=== PATIENT | male | born 1995 | race Caucasian/White ===

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

== ENCOUNTER 2017-09-28 20:06 | Emergency (ER) | payer OTHER ==
[~2017-09-28] VITALS: Ht 188 cm; Wt 127.0 kg
[~2017-09-28 20:06] MED LIST changes: +ONDA8TAB9 PO
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
--- OUTSIDE RECORDS SUMMARY | 2017-09-28 20:12 | XMS REPORT | Continuity of Care Document ---
Author Author [employer] Organization [facility] Address Unknown Phone Unavailable Care Team Providers Care Upholsterer Inside Name Role Phone [employer] Unavailable Unavailable Problems Medications Allergies, Adverse Reactions, Alerts Immunizations Results Vital Signs Encounters Location Location Details Encounter Type Encounter Number Reason For Visit Attending Provider ADM Date DC Date Status Source [facility] CLI [id number] Eval R knee pain xmths, neg films Nabila Pacicca Active [facility] Procedures Plan of Care Social History Assessment and Plan Family History Advance Directives Functional Status
--- OUTSIDE RECORDS SUMMARY | 2017-09-28 20:12 | XMS REPORT | Clinical Summary ---
Author Author [facility] Organization [facility] Address Unknown Phone Unavailable Care Team Providers Care Woodworking Machine Operator Name Role Phone PCP Unavailable Source Comments Some departments are not documenting in the electronic medical record. If you do not see the information that you expected, contact Release of Information in the Health Information Management department at [phone] for further assistance in locating additional records.[facility] Allergies Not on File Current Medications Not on file Active Problems Not on file Social History Tobacco Use Types Packs/Day Years Used Date Never Assessed Sex Assigned at Date Recorded Not on file Last Filed Vital Signs Not on file Plan of Treatment Health Maintenance Due Date Last Done Comments PHYSICAL (COMPREHENSIVE) 2004 EXAM HPV VACCINES (1 of 3 - 2008 Male 3 Dose Series) PERTUSSIS VACCINE 2008 HIV SCREENING 2012 TETANUS VACCINE 2014 INFLUENZA VACCINE 04/14/2018 Results Not on filefrom Last 3 Months
--- OUTSIDE RECORDS SUMMARY | 2017-09-28 20:12 | XMS REPORT ---
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 027626859 Problem Morbid obesity E66.01 Active 192771861 Problem GERD without esophagitis K21.9 Active 305500605 ALLERGIES No Known Allergies SOCIAL HISTORY Never Assessed PLAN OF CARE Activity Details Follow Up prn Reason: VITAL SIGNS Height 70 in 2016-07-11 Weight 305.6 lbs 2016-07-11 Temperature 97.8 degrees Fahrenheit 2016-07-11 Heart Rate 88 bpm 2016-07-11 Respiratory Rate 18 2016-07-11 BMI 43.84 kg/m2 2016-07-11 Blood pressure systolic 128 mmHg 2016-07-11 Blood pressure diastolic 82 mmHg 2016-07-11 MEDICATIONS Medication Instructions Dosage Frequency Start Date End Date Duration Status Amoxicillin 500 MG Orally every 12 hrs 1 tablet 12h Jun, Jul, 10 day(s) Active PredniSONE 20 MG Orally Once a day 1 tablet 24h Jun, Jul, 5 days Active RESULTS No Results PROCEDURES No Known procedures IMMUNIZATIONS No Known Immunizations MEDICAL (GENERAL) HISTORY Type Description Date Medical History RA- has never been treated for this Medical History asthma Medical History MRSA right knee Surgical History orthopedic surgery- right knee at age 8 2003 Hospitalization History Surgery(s) only 2003 Hospitalization History pneumonia as an infant
[2017-09-28] MEDS ORDERED: HYDROcodone/APAP 5 MG/325 MG (LORTAB) TAB PO ONE (20:15)
--- NOTE | 2017-09-28 20:22 | ED Lower Extremity ---
General Stated Complaint: FELL,KNEE SWOLLEN Source: patient Exam Limitations: no limitations History of Present Illness Date Seen by Provider: Sep 28, 2017 Time Seen by Provider: 20:19 Initial Comments Ambulatory to room 6 without use of assistive device with reports of right knee pain. Patient was at [employer] for his sister's pancake feed when he slipped on a wet spot on the floor and his right lower leg went out laterally buckling of the knee. He has been able to walk since the injury including immediately after the injury but has pain to the medial aspect and some swelling now. Onset: just prior to arrival Severity: moderate Pain/Injury Location: right knee Method of Injury: twisted Modifying Factors: Worse With Movement Allergies and Home Medications Allergies Coded Allergies: No Known Drug Allergies (Unverified , 02/09/09) Home Medications Ondansetron 8 Mg Tab.rapdis, 8 MG PO Q6H PRN for NAUSEA-1ST LINE Prescribed by: CALIN LAFLEUR on 10/16/16 1839 Tramadol HCl 50 Mg Tablet, 1-2 TAB PO Q4H PRN for PAIN Prescribed by: MAYA REYNOSO on 12/18/15 0324 Patient Home Medication List Home Medication List Reviewed: Yes Constitutional: see HPI EENTM: see HPI Respiratory: no symptoms reported Cardiovascular: no symptoms reported Genitourinary: no symptoms reported Musculoskeletal: see HPI Skin: no symptoms reported Psychiatric/Neurological: No Symptoms Reported Past Ksftxhz-Zwgiyo-Asbyro Hx Patient Social History Recent Hopitalizations: No Immunizations Up To Date Tetanus Booster (TDap): Less than 5yrs Date of Influenza Vaccine: Apr 14, 2012 Seasonal Allergies Seasonal Allergies: No Surgeries Surgeries: Orthopedic Respiratory Respiratory Disorders: Asthma Reproductive System Hx Reproductive Disorders: No Sexually Transmitted Disease: No Psychosocial Behavioral Health Disorders: ADD/ADHD Physical Exam Vital Signs Vital Signs - First Documented 09/28/17 20:13 Temp 99.1 Pulse 103 Resp 18 B/P (MAP) 161/89 (113) Pulse Ox 96 O2 Delivery Room Air Capillary Refill : General Appearance: WD/WN, no apparent distress HEENT: PERRL/EOMI, normal ENT inspection Neck: non-tender, full range of motion Respiratory: no respiratory distress, no accessory muscle use Gastrointestinal: normal bowel sounds, non tender Hips: bilateral hip non-tender, bilateral hip normal inspection, bilateral hip normal range of motion Legs: bilateral leg non-tender, bilateral leg normal inspection, bilateral leg normal range of motion Knees: left knee non-tender, left knee normal inspection, left knee normal range of motion, right knee pain, right knee soft tissue tenderness, right knee swelling Ankles: bilateral ankle non-tender, bilateral ankle normal inspection, bilateral ankle normal range of motion Feet: bilateral foot non-tender, bilateral foot normal inspection, bilateral foot normal range of motion Neurologic/Psychiatric: alert, normal mood/affect, oriented x 3 Skin: normal color, warm/dry Progress/Results/Core Measures Results/Orders My Orders Orders - CALIN LAFLEUR APRN Knee, Right, 3 Views (09/28/17 20:15) Hydrocodone/Apap 5/325 Tablet (Lortab 5 (09/28/17 20:15) Rx-Hydrocodone/Apap 5-325 Mg (Rx-Vicodin (09/28/17 21:15) Medications Given in ED Current Medications Medications Dose Ordered Sig/Omar Route Start Time Stop Time Status Last Admin Dose Admin Acetaminophen/ Hydrocodone Bitart 1 ea Q4H PRN PO 09/28/17 21:15 09/28/17 22:54 DC 09/28/17 21:15 1 EA Acetaminophen/ Hydrocodone Bitart 1 tab ONCE ONCE PO 09/28/17 20:15 09/28/17 20:16 DC 09/28/17 20:20 1 TAB Vital Signs/I&O Vital Sign - Last 12Hours 09/28/17 09/28/17 20:13 21:15 Temp 99.1 Pulse 103 0 Resp 18 0 B/P (MAP) 161/89 (113) 0/0 Pulse Ox 96 0 O2 Delivery Room Air Departure Communication (Admissions) Progress Notes Due to the patient's large body habitus, a knee immobilizer will not fit. We will give him an Truong bandage and crutches. Impression Impression: Primary Impression: Internal derangement of right knee Disposition: HOME, SELF-CARE Condition: Stable Departure-Patient Inst. Decision time for Depature: 20:21 Referrals: NO,LOCAL PHYSICIAN (PCP/Family) Primary Care Physician Patient Instructions: Knee Pain Add. Discharge Instructions: 1. Return to the emergency room for any worsening pain 2. Tylenol and Motrin for pain control. Ice pack to the knee as much as possible for the rest of tonight. Follow-up with your doctor next week if the pain persists to discuss further imaging such as MRI of the knee. CALIN LAFLEUR APRN Sep 28, 2017 20:22
--- NOTE | 2017-09-28 21:08 | Diagnostic Imaging Report ---
PATIENT HISTORY: Pain in the right knee after fall. TECHNIQUE: 3 views of the right knee COMPARISON: 03/10/2014 FINDINGS: No acute fracture or dislocation is seen in the right knee. Alignment appears normal. There is a slightly irregular appearance of the patella, thought to be due to a large bipartite component. No significant joint effusion is seen. There is mild anterior soft tissue edema. IMPRESSION: No acute osseous abnormality is seen in the right knee. Dictated by: Dictated on workstation # [id number]
[2017-09-28 21:15] VITALS: BP 0/0
[2017-09-28] MEDS ORDERED: RX-HYDROCODONE/APAP 5/325 MG #4 TAB PK PO PRN (21:15)
== END 2017-09-28 21:15 | disposition home or self-care (01) ==
LOC: EDUNIT# 20:06 → ER 20:09
DX: M23.91 Unspecified internal derangement of right knee (principal); F90.9 Attention-deficit hyperactivity disorder, unspecified type; W01.0XXA Fall on same level from slipping, tripping and stumbling without subsequent striking against object, initial encounter
CPT/HCPCS: 73562

== ENCOUNTER 2017-09-30 19:28 | Emergency (ER) | payer OTHER ==
[~2017-09-30] VITALS: Ht 188 cm; Wt 127.0 kg
--- OUTSIDE RECORDS SUMMARY | 2017-09-30 19:33 | XMS REPORT | Continuity of Care Document ---
Author Author [facility] Organization [facility] Address Unknown Phone Unavailable Allergies Active Description Code Type Severity Reaction Onset Reported/Identified Relationship to Patient Clinical Status Yes No Known Drug Allergies [id number] Drug Allergy Mild N/A 02/09/2009 Medications There [...] MD Ot E016.1 ACTIVITIES INVOLVING GARDENING AND [employer] 10/26/2013 MAYA REYNOSO MD Ot E927.0 OVEREXERTION [...] culture - 10/16/16 18:33 Bacterial throat culture [id number] NRG FREE TEXT EXTERNAL PLUS ABUNDANT NORMAL KRISS NRG QUANTITY OF GROWTH Scant Growth NRG Encounters ACCT No. Visit Date/Time Discharge Status Pt. Type Provider Facility Loc./Unit Complaint [id number] 10/16/2016 18:16:00 10/16/2016 19:02:00 DIS Emergency CALIN LAFLEUR APRN [facility] ER VOMITING,SORE THROAT [id number] 12/23/2015 21:38:00 12/23/2015 23:27:00 DIS Emergency CALIN LAFLEUR APRN [facility] ER SEVERE PAIN IN HEAD AND NECK/DIZZINESS [id number] 12/18/2015 02:53:00 12/18/2015 03:43:00 DIS Emergency MAYA REYNOSO MD [facility] ER FALL [id number] 11/07/2014 23:27:00 11/08/2014 00:23:00 DIS Emergency ANA FATIMA DO [facility] ER RT EAR HEARING LOSS/ POSSIBLE FOREIGN BODY [id number] 03/10/2014 08:16:00 03/10/2014 09:27:00 DIS Emergency ANA FATIMA DO [facility] ER RIGHT KNEE INJURY [id number] 10/26/2013 18:35:00 10/26/2013 19:00:00 DIS Emergency MAYA REYNOSO MD [facility] ER BACK PAIN [id number] 04/27/2013 20:03:00 04/27/2013 22:07:00 DIS Emergency LESLYE ARRIAZA [facility] ER MULTIPLE COMPLAINTS [id number] 11/26/2012 21:54:00 11/26/2012 22:45:00 DIS Emergency ANA FATIMA DO [facility] ER MOUTH ABCESS [id number] 08/09/2012 22:17:00 Document Registration [id number] 12/14/2010 21:17:00 Document Registration
--- OUTSIDE RECORDS SUMMARY | 2017-09-30 19:33 | XMS REPORT | Continuity of Care Document ---
Author Author [employer] Organization [facility] Address Unknown Phone Unavailable Care Team Providers Care Staffing Operations Manager Name Role Phone [employer] Unavailable Unavailable Problems Medications Allergies, Adverse Reactions, Alerts Immunizations Results Vital Signs Encounters Location Location Details Encounter Type Encounter Number Reason For Visit Attending Provider ADM Date DC Date Status Source [facility] CLI [id number] Eval R knee pain xmths, neg films Nabila Pacicca Active [facility] Procedures Plan of Care Social History Assessment and Plan Family History Advance Directives Functional Status
--- OUTSIDE RECORDS SUMMARY | 2017-09-30 19:33 | XMS REPORT | Clinical Summary ---
Author Author [facility] Organization [facility] Address Unknown Phone Unavailable Care Team Providers Care Electrical Fitter Name Role Phone PCP Unavailable Source Comments Some departments are not documenting in the electronic medical record. If you do not see the information that you expected, contact Release of Information in the Health Information Management department at [phone] for further assistance in locating additional records.[facility] Allergies Not on File Current Medications [...]
[2017-09-30] MEDS ORDERED: METH4TAB PO (19:43)
--- NOTE | 2017-09-30 19:43 | ED Lower Extremity ---
General Chief Complaint: Lower Extremity Stated Complaint: PREV FALL/PAIN Source: patient History of Present Illness Date Seen by Provider: Sep 30, 2017 Time Seen by Provider: 19:34 Initial Comments PT ARRIVES VIA POV FROM HOME--AMBULATES IN ON HIS OWN WITHOUT DIFFICULTY PT WAS SEEN HERE ON Saturday09/28/17 AFTER TWISTING HIS RIGHT KNEE PT WAS SENT HOME WITH TAKE HOME PACK OF HYDROCODONE 5/325, AND NO RX. PT STATES "THE HYDRO'S AREN'T TOUCHING IT AND I ONLY HAVE 2 LEFT" STATES HE TOOK 1 PILL 30 MINUTES AGO. HAS NOT TAKEN ANYTHING ELSE FOR PAIN PT STATED AT THAT VISIT, THAT HE HAD ACCESS TO CRUTCHES, AND HAS THEM BUT HAS NOT BEEN USING THEM C/O CONTINUED PAIN, BUT HAS CONTINUED TO WALK ON IT NO NEW INJURY SINCE SATURDAY [facility] PCP: JOSH, RAJAN CEJA Allergies and Home Medications Allergies Coded Allergies: No Known Drug Allergies (Unverified , 02/09/09) Home Medications Methylprednisolone 4 Mg Tab.ds.pk, 4 MG PO UD Prescribed by: ANA FATIMA on 09/30/171942 Ondansetron 8 Mg Tab.rapdis, 8 MG PO Q6H PRN for NAUSEA-1ST LINE Prescribed by: CALIN LALFEUR on 10/16/16 1839 Tramadol HCl 50 Mg Tablet, 1-2 TAB PO Q4H PRN for PAIN Prescribed by: MAYA REYNOSO on 12/18/15 0324 Patient Home Medication List Home Medication List Reviewed: Yes Constitutional: no symptoms reported Musculoskeletal: see HPI Skin: no symptoms reported Psychiatric/Neurological: No Symptoms Reported Past Dcxumdi-Qxooxu-Yvedsg Hx Patient Social History Alcohol Use: Denies Use Recreational Drug Use: No Smoking Status: Never a Smoker Recent Foreign Travel: No Contact w/Someone Who Travel: No Recent Hopitalizations: No Immunizations Up To Date Tetanus Booster (TDap): Less than 5yrs Date of Influenza Vaccine: Apr 14, 2012 Seasonal Allergies Seasonal Allergies: No Surgeries History of Surgeries: Yes (RIGHT KNEE ABSCESS I&D AGE 8) Surgeries: Orthopedic Respiratory History of Respiratory Disorde: Yes Respiratory Disorders: Asthma Cardiovascular History of Cardiac Disorders: No Neurological History of Neurological Disord: No Reproductive System Hx Reproductive Disorders: No Sexually Transmitted Disease: No Gastrointestinal History of Gastrointestinal Di: No Musculoskeletal History of Musculoskeletal Dis: No Endocrine History of Endocrine Disorders: No HEENT History of HEENT Disorders: No Cancer History of Cancer: No Psychosocial History of Psychiatric Problem: Yes Behavioral Health Disorders: ADD/ADHD Integumentary History of Skin or Integumenta: Yes (?MRSA?) Blood Transfusions History of Blood Disorders: No Physical Exam Vital Signs Capillary Refill : General Appearance: WD/WN, no apparent distress, obese Knees: right knee normal range of motion, right knee no evidence of injury, right knee soft tissue tenderness, right knee other (NO SWELLING OR EFFUSION, NO LIGAMENT LAXITY. 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 Referrals: ROLAND MEADOWS DO [facility] Patient Instructions: Going Up and Down Curbs or Stairs With a Walker or Crutches, How to Use Crutches, How to Use an Elastic Bandage, Knee Immobilizer ( DC), Knee Sprain (DC) Add. Discharge Instructions: WEAR TRUONG WRAP AND KNEE IMMOBILIZER AND USE CRUTCHES AT ALL TIMES ALTERNATE ICE AND HEAT TO AREA AT 20 MINUTE INTERVALS FOLLOW UP WITH DR. MEADOWS AT [facility] 4 STATES NEXT WEEK FOR FURTHER CARE All discharge instructions reviewed with patient and/or family. Voiced understanding. Scripts Methylprednisolone (Medrol) 4 Mg Tab.ds.pk 4 MG PO UD, #1 PKG Prov: ANA FATIMA DO 09/30/17 ANA FATIMA DO Sep 30, 2017 19:43
[2017-09-30 19:51] VITALS: BP 154/115
[2017-09-30] MEDS ORDERED: METF500T8 (20:03)
== END 2017-09-30 19:51 | disposition home or self-care (01) ==
LOC: EDUNIT# 19:28 → ER 19:29
DX: M25.561 Pain in right knee (principal); J45.909 Unspecified asthma, uncomplicated; F90.9 Attention-deficit hyperactivity disorder, unspecified type; Z79.52 Long term (current) use of systemic steroids; X50.0XXA Overexertion from strenuous movement or load, initial encounter
CPT/HCPCS: 99283

== ENCOUNTER 2018-01-05 21:22 | Emergency (ER) | payer SELFPAY ==
[~2018-01-05] VITALS: Ht 188 cm; Wt 127.0 kg
[~2018-01-05 21:22] MED LIST changes: +METF500T8; +METH4TAB PO
--- OUTSIDE RECORDS SUMMARY | 2018-01-05 21:28 | XMS REPORT | Clinical Summary ---
Author Author [facility] Organization [facility] Address Unknown Phone Unavailable Care Team Providers Care Helpdesk Administrator Name Role Phone PCP Unavailable Source Comments Some departments are not documenting in the electronic medical record. If you do not see the information that you expected, contact Release of Information in the Health Information Management department at [phone] for further assistance in locating additional records.[facility] Allergies Not on File Current Medications [...]
--- OUTSIDE RECORDS SUMMARY | 2018-01-05 21:29 | XMS REPORT ---
Author Author LEEANN CEJA Organization [facility] Address [address] [place] [address] Care Team Providers Care Oil Well Services Field Supervisor Name Role Phone LEEANN CEJA Unavailable PROBLEMS Type Condition ICD9-CM Code TZP14-ND Code Onset Dates Condition Status SNOMED Code Problem Morbid obesity E66.01 Active 683273546 Problem GERD without esophagitis K21.9 Active 307899112 Problem Migraine with aura and without status migrainosus, not intractable G43.109 Active 3896646 Problem Moderate persistent asthma without complication J45.40 Active 272396465 Problem Tobacco abuse counseling Z71.6 Active 459734853 Problem Tobacco abuse Z72.0 Active 091070556 Problem Type 2 diabetes mellitus without complication, without long-term current use of insulin E11.9 Active 583795991 Problem History of juvenile rheumatoid arthritis Z87.39 Active 771443465 ALLERGIES No Information ENCOUNTERS Encounter Location Date Diagnosis [place] [address] [address]- [address]3 Dec, [place] [address] 85869- 7107 Aug, [place] [address] [place] [id number] [place] [address] 37082- 4842 Aug, Type 2 diabetes mellitus without complication, without long- term current use of insulin E11.9 [place] [address] 72371- 6470 14 Aug, 2017 [place] [address] 63080- 7297 08 Aug, 2017 Type 2 diabetes mellitus without complication, without long- term current use of insulin E11.9 [place] [address] 76911- 1533 Aug, [place] [address] [place] [address] 94437- 1603 Aug, Type 2 diabetes mellitus without complication, without long- term current use of insulin E11.9 [place] [address] [place] [address] 44979- 5305 Jul, [place] [address] [place] [id number] [place] [address] 95648- 0640 Jul, [place] [address] [place] [address] 91618- 3061 Jul, Type 2 diabetes mellitus without complication, without long- term current use of insulin E11.9 ; Migraine with aura and without status migrainosus, not intractable G43.109 and BMI 40.0-44.9, adult Z68.41 [place] [address] [place] [id number] [place] [address] 98022- 9551 Jul, [place] [address] [place] [address] 76353- 7775 Jun, [place] [address] [place] [id number] [place] [address] 67361- 5267 Jun, [place] [address] [place] [address] 82200- 3761 Jun, [place] [address] [place] [address] 40581- 5468 Jun, Type 2 diabetes mellitus without complication, without long- term current use of insulin E11.9 ; Moderate persistent asthma without complication J45.40 ; BMI 40.0-44.9, adult Z68.41 and Encounter for screening for diabetes mellitus Z13.1 [place] [address] [place] [address] 75146- 3010 May, [place] [address] [address] 08 Mar, 2017 Encounter to establish care with new doctor Z76.89 ; History of juvenile rheumatoid arthritis Z87.39 ; Tobacco abuse Z72.0 ; Tobacco abuse counseling Z71.6 ; GERD without esophagitis K21.9 ; Morbid obesity E66.01 and Acute serous otitis media of left ear, recurrence not specified H65.02 [facility] [address] [place] [address] 06 Mar, 2017 [facility] [address] [place] [id number] [place] [address] 68534 -0805 Jun, Acute non-recurrent pansinusitis J01.40 [facility] [address] [place] [id number] [place] [address] [id number] Sep, Stye H00.019 and Left eye pain H57.12 [facility] [address] [place] [id number] [place] [address] 58971- 3076 Oct, [facility] [address] [place] [id number] [place] [address] 60447- 1228 Oct, [facility] [address] [place] [id number] [place] [address] 53100- 1979 Jul, [facility] [address] [place] [id number] [place] [address] 70731- 4577 Jul, [facility] [address] [place] [address] 85956- 2267 May, [facility] [address] [place] [id number] [place] [address] 57303- 2684 May, [facility] [address] [place] [id number] [place] [address] 84786- 6306 May, [facility] [address] [place] [id number] [place] [address] 67351- 5431 May, [facility] [address] [place] [id number] [place] [address] 01374- 0945 Feb, [facility] [address] [place] [id number] [place] [address] 57942- 6333 Feb, [facility] [address] [facility] [id number] [place] [address]- 2478 Sep, [facility] [address] [facility] [id number] [place] [address] Sep, IMMUNIZATIONS No Known Immunizations SOCIAL HISTORY Never Assessed REASON FOR VISIT BS f/u attempt PLAN OF CARE VITAL SIGNS MEDICATIONS Unknown Medications RESULTS No Results PROCEDURES No Known procedures INSTRUCTIONS MEDICATIONS ADMINISTERED No Known Medications MEDICAL (GENERAL) HISTORY Type Description Date Medical History RA- has never been treated for this Medical History asthma Medical History MRSA right knee Surgical History orthopedic surgery- right knee at age 8 2003 Hospitalization History Surgery(s) only 2003 Hospitalization History pneumonia as an infant
--- OUTSIDE RECORDS SUMMARY | 2018-01-05 21:29 | XMS REPORT ---
Author Author LEEANN CEJA Organization [facility] Address [address] [place] [address] Care Team Providers Care Customer Support Engineer Name Role Phone LEEANN CEJA Unavailable PROBLEMS Type Condition ICD9-CM Code VDB20-IY Code Onset Dates Condition Status SNOMED Code Problem Morbid obesity E66.01 Active 286320874 Problem GERD without esophagitis K21.9 Active 776499411 Problem Migraine with aura and without status migrainosus, not intractable G43.109 Active 3584603 Problem Moderate persistent asthma without complication J45.40 Active 585496089 Problem Tobacco abuse counseling Z71.6 Active 844837459 Problem Tobacco abuse Z72.0 Active 138965471 Problem Type 2 diabetes mellitus without complication, without long-term current use of insulin E11.9 Active 703656866 Problem History of juvenile rheumatoid arthritis Z87.39 Active 717095243 ALLERGIES No Known Allergies ENCOUNTERS Encounter Location Date Diagnosis [place] [address] [place] [id number] [place] [address] 13947- 6115 20 Aug, 2017 [place] [address] [place] [id number] [place] [address] 18600- 9399 Aug, Type 2 diabetes mellitus without complication, without long- term current use of insulin E11.9 [facility] [address] [place] [address] 22292- 4927 Aug, [facility] [address] [place] [id number] [place] [address] 28993- 2810 08 Aug, 2017 Type 2 diabetes mellitus without complication, without long- term current use of insulin E11.9 [facility] [address] [place] [id number] [place] [address] 69263- 3104 Aug, [facility] [address] [place] [id number] [place] [address] 77104- 4175 Aug, Type 2 diabetes mellitus without complication, without long- term current use of insulin E11.9 [place] [address] [place] [id number] [place] [address] 83209- 2503 Jul, [place] [address] [place] [id number] [place] [address] 05536- 8471 Jul, [place] [address] [place] [id number] [place] [address] 83530- 9607 Jul, Type 2 diabetes mellitus without complication, without long- term current use of insulin E11.9 ; Migraine with aura and without status migrainosus, not intractable G43.109 and BMI 40.0-44.9, adult Z68.41 [place] [address] [place] [id number] [place] [address] 09365- 0211 Jul, [place] [address] [place] [id number] [place] [address] 82985- 3935 Jun, [place] [address] [place] [id number] [place] [address] 98446- 9627 Jun, [place] [address] [place] [id number] [place] [address] 35344- 0101 Jun, [place] [address] [place] [address] 36456- 7537 Jun, Type 2 diabetes mellitus without complication, without long- term current use of insulin E11.9 ; Moderate persistent asthma without complication J45.40 ; BMI 40.0-44.9, adult Z68.41 and Encounter for screening for diabetes mellitus Z13.1 [place] [address] [place] [id number] [place] [address] 95602- 6632 May, [place] [address] [place] [id number] [place] [address] 89224- 5674 Mar, Encounter to establish care with new doctor Z76.89 ; History of juvenile rheumatoid arthritis Z87.39 ; Tobacco abuse Z72.0 ; Tobacco abuse counseling Z71.6 ; GERD without esophagitis K21.9 ; Morbid obesity E66.01 and Acute serous otitis media of left ear, recurrence not specified H65.02 [facility] [address] [place] [id number] [place] [address] 30072- 6555 06 Mar, 2017 [facility] [address] [place] [id number] [place] [address] 62478 -8977 Jun, Acute non-recurrent pansinusitis J01.40 [facility] [address] [place] [id number] [place] [address] [id number] [phone] Sep, 2015 Stye H00.019 and Left eye pain H57.12 [facility] [address] [place] [id number] [place] [address] 64397- 8946 Oct, [facility] [address] [place] [id number] [place] [address] 87621- 0737 Oct, [facility] [address] [place] [id number] [place] [address] 38291- 5807 Jul, [facility] [address] [place] [id number] [place] [address] 24666- 7098 Jul, [facility] [address] [place] [id number] [place] [address] 38817- 1830 May, [facility] [address] [place] [id number] [place] [address] 87433- 8037 May, [facility] [address] [place] [id number] [place] [address] 56505- 8449 May, [facility] [address] [place] [id number] [place] [address] 76262- 2286 May, [facility] [address] [place] [id number] [place] [address] [id number]- 6266 Feb, [facility] [address] [place] [id number] [place] [address] [phone]- 3437 Feb, [facility] [address] [place] [id number] [place] [address] 49492- 2709 Sep, [facility] [address] [facility] [id number] [place] [address]- 8179 Sep, IMMUNIZATIONS No Known Immunizations SOCIAL HISTORY Never Assessed REASON FOR VISIT Establish Care Presley, wants to see if he is diabetic. BS run around 200- 300. PLAN OF CARE Activity Details Follow Up 4 Weeks Reason:DM VITAL SIGNS Height 70 in 2017-06-17 Weight 298.6 lbs 2017-06-17 Temperature 98.7 degrees Fahrenheit 2017-06-17 Heart Rate 108 bpm 2017-06-17 Respiratory Rate 20 2017-06-17 BMI 42.84 kg/m2 2017-06-17 Blood pressure systolic 140 mmHg 2017-06-17 Blood pressure diastolic 90 mmHg 2017-06-17 MEDICATIONS Medication Instructions Dosage Frequency Start Date End Date Duration Status Glucocard Expression Test - In Vitro Test blood sugars fasting and 2 hours after biggest meal. test blood sugar May, Active Glucocard Expression Monitor w/Device as directed May, Active Ibuprofen 200 MG Orally every 6 hrs 1 tablet with food or milk as needed 6h Active Glucocard Expression Test - In Vitro Test fasting and 2 hours after biggest meal. test blood sugar May, Active MetFORMIN HCl ER 500 mg Orally Once a day and taper up by 1 pill every 4 days to a maximum of 2 pills twice a day 1 tablet Jun, 30 day(s) Active RESULTS Name Result Date Reference Range A1C (IN HOUSE) 2017-06-17 A1C IN HOUSE 10.3 4.3 - 5.6 % Previous A1c n/a Lot [id number] Exp date 02/2019 PROCEDURES Procedure Date Ordered Result Body Site GLYCATED HEMOGLOBIN TEST Jun 17, 2017 INSTRUCTIONS MEDICATIONS ADMINISTERED No Known Medications MEDICAL (GENERAL) HISTORY Type Description Date Medical History RA- has never been treated for this Medical History asthma Medical History MRSA right knee Surgical History orthopedic surgery- right knee at age 8 2003 Hospitalization History Surgery(s) only 2003 Hospitalization History pneumonia as an infant
--- OUTSIDE RECORDS SUMMARY | 2018-01-05 21:29 | XMS REPORT ---
Author Author LEEANN CEJA Organization [facility] Address [address] [place] [address] Care Team Providers Care Family Practice Nurse Practitioner Name Role Phone LEEANN CEJA Unavailable PROBLEMS Type Condition ICD9-CM Code SWW25-LW Code Onset Dates Condition Status SNOMED Code Problem Morbid obesity E66.01 Active 951652274 Problem GERD without esophagitis K21.9 Active 598087064 Problem Migraine with aura and without status migrainosus, not intractable G43.109 Active 3240935 Problem Moderate persistent asthma without complication J45.40 Active 180783909 Problem Tobacco abuse counseling Z71.6 Active 832814427 Problem Tobacco abuse Z72.0 Active 828084391 Problem Type 2 diabetes mellitus without complication, without long-term current use of insulin E11.9 Active 325335756 Problem History of juvenile rheumatoid arthritis Z87.39 Active 962375297 ALLERGIES No Information ENCOUNTERS Encounter Location Date Diagnosis [place] [address] [place] [id number] [place] [address] 53404- 9548 Aug, [facility] [address] [place] [id number] [place] [address] 20579- 3359 Aug, Type 2 diabetes mellitus without complication, without long- term current use of insulin E11.9 [facility] [address] [place] [id number] [place] [address] 20422- 4234 Aug, [place] [address] [place] [id number] [place] [address] 39084- 0936 08 Aug, 2017 Type 2 diabetes mellitus without complication, without long- term current use of insulin E11.9 [facility] [address] [place] [id number] [place] [address] 02936- 6363 Aug, [facility] [address] [place] [id number] [place] [address] 06661- 6284 Aug, Type 2 diabetes mellitus without complication, without long- term current use of insulin E11.9 [place] [address] [place] [address] 59869- 4266 Jul, [place] [address] [place] [address] 96640- 5283 Jul, [place] [address] [place] [id number] [place] [address] 65483- 2935 Jul, Type 2 diabetes mellitus without complication, without long- term current use of insulin E11.9 ; Migraine with aura and without status migrainosus, not intractable G43.109 and BMI 40.0-44.9, adult Z68.41 [place] [address] [place] [address] 52232- 2731 Jul, [place] [address] [place] [id number] [place] [address] 84300- 5984 Jun, [place] [address] [place] [address] 01226- 1490 Jun, [place] [address] [place] [id number] [place] [address] 07707- 1411 Jun, [place] [address] [place] [address] 68638- 2706 Jun, Type 2 diabetes mellitus without complication, without long- term current use of insulin E11.9 ; Moderate persistent asthma without complication J45.40 ; BMI 40.0-44.9, adult Z68.41 and Encounter for screening for diabetes mellitus Z13.1 [place] [address] [place] [address] 01786- 6688 May, [place] [address] [place] [id number] [place] [address] 62152- 3754 Mar, Encounter to establish care with new doctor Z76.89 ; History of juvenile rheumatoid arthritis Z87.39 ; Tobacco abuse Z72.0 ; Tobacco abuse counseling Z71.6 ; GERD without esophagitis K21.9 ; Morbid obesity E66.01 and Acute serous otitis media of left ear, recurrence not specified H65.02 [facility] [address] [place] [id number] [place] [address] 88471- 5596 06 Mar, 2017 [facility] [address] [place] [id number] [place] [address] 73896 -9252 Jun, Acute non-recurrent pansinusitis J01.40 [facility] [address] [place] [id number] [place] [address] [id number] 10 Sep, 2015 Stye H00.019 and Left eye pain H57.12 [facility] [address] [place] [id number] [place] [address] 65762- 0562 Oct, [facility] [address] [place] [address] [id number] [place] [address] 49826- 1869 Oct, [facility] [address] [place] [id number] [place] [address] 33130- 3471 Jul, [facility] [address] [place] [address] [id number] [place] [address] 59920- 7086 Jul, [facility] [address] [id number] [place] [address] 63258- 6952 May, [facility] [address] [place] [id number] [place] [address] 87616- 2985 May, [facility] [address] [id number] [place] [address] 31451- 5132 May, [facility] [address] [id number] [place] [address] 38907- 1645 May, [facility] [address] [id number] [place] [address] 06716- 3929 Feb, [facility] [address] [place] [id number] [place] [address] 88551- 0581 Feb, [facility] [address] [id number] [place] [address] 73441- 6261 Sep, [facility] [address] [facility] [id number] [place] [address]- 2234 Sep, IMMUNIZATIONS No Known Immunizations SOCIAL HISTORY Never Assessed REASON FOR VISIT Requests return call PLAN OF CARE VITAL SIGNS MEDICATIONS Unknown [...]
--- OUTSIDE RECORDS SUMMARY | 2018-01-05 21:29 | XMS REPORT ---
Author Author LEEANN CEJA Organization [facility] Address [address] [place] [address] Care Team Providers Care Citizenship Teacher Name Role Phone LEEANN CEJA Unavailable PROBLEMS Type Condition ICD9-CM Code EFO00-ZC Code Onset Dates Condition Status SNOMED Code Problem Morbid obesity E66.01 Active 345644496 Problem GERD without esophagitis K21.9 Active 173350138 Problem Migraine with aura and without status migrainosus, not intractable G43.109 Active 6305673 Problem Moderate persistent asthma without complication J45.40 Active 264429689 Problem Tobacco abuse counseling Z71.6 Active 673750528 Problem Tobacco abuse Z72.0 Active 649726674 Problem Type 2 diabetes mellitus without complication, without long-term current use of insulin E11.9 Active 522879875 Problem History of juvenile rheumatoid arthritis Z87.39 Active 275479886 ALLERGIES No Information ENCOUNTERS Encounter Location Date Diagnosis [place] [id number] [place] [address] 73623- 3652 Aug, [facility] [id number] [place] [address] 61693- 6138 Aug, Type 2 diabetes mellitus without complication, without long- term current use of insulin E11.9 [facility] [id number] [place] [address] 80001- 6548 Aug, [place] [id number] [place] [address] 49895- 7243 08 Aug, 2017 Type 2 diabetes mellitus without complication, without long- term current use of insulin E11.9 [facility] [id number] [place] [address] 59702- 1609 Aug, [facility] [id number] [place] [address] 37499- 0008 Aug, Type 2 diabetes mellitus without complication, without long- term current use of insulin E11.9 [place] [address] [place] [address] 08320- 0906 Jul, [place] [address] [place] [address] 72486- 3645 Jul, [place] [id number] [place] [address] 72627- 3691 Jul, Type 2 diabetes mellitus without complication, without long- term current use of insulin E11.9 ; Migraine with aura and without status migrainosus, not intractable G43.109 and BMI 40.0-44.9, adult Z68.41 [place] [address] [place] [address] 39152- 6446 Jul, [place] [id number] [place] [address] 07993- 5302 Jun, [place] [id number] [place] [address] 01486- 2723 Jun, [place] [id number] [place] [address] 07390- 9243 Jun, [place] [address] [place] [address] 83024- 2794 Jun, Type 2 diabetes mellitus without complication, without long- term current use of insulin E11.9 ; Moderate persistent asthma without complication J45.40 ; BMI 40.0-44.9, adult Z68.41 and Encounter for screening for diabetes mellitus Z13.1 [place] [address] [place] [address] 64301- 5205 May, [place] [id number] [place] [address] 79614- 3222 Mar, Encounter to establish care with new doctor Z76.89 ; History of juvenile rheumatoid arthritis Z87.39 ; Tobacco abuse Z72.0 ; Tobacco abuse counseling Z71.6 ; GERD without esophagitis K21.9 ; Morbid obesity E66.01 and Acute serous otitis media of left ear, recurrence not specified H65.02 [facility] [id number] [place] [address] 54305- 3794 06 Mar, 2017 [facility] [id number] [place] [address] 79405 -2347 Jun, Acute non-recurrent pansinusitis J01.40 [facility] [id number] [place] [address] [id number] 10 Sep, 2015 Stye H00.019 and Left eye pain H57.12 [facility] [id number] [place] [address] 41754- 8511 Oct, [facility] [id number] [place] [address] 95750- 6623 Oct, [facility] [id number] [place] [address] 92966- 3931 Jul, [facility] [id number] [place] [address] 39745- 7536 Jul, [facility] [id number] [place] [address] 16876- 0340 May, [facility] [id number] [place] [address] 36557- 6046 May, [facility] [id number] [place] [address] 66350- 6813 May, [facility] [id number] [place] [address] 51073- 6883 May, [facility] [id number] [place] [address] 73877- 7639 Feb, [facility] [id number] [place] [address] 19921- 4277 Feb, [facility] [id number] [place] [address] 24963- 8969 Sep, [facility] [address] [facility] [id number] [place] [address] 7764 Sep, IMMUNIZATIONS No Known Immunizations SOCIAL HISTORY Never Assessed REASON FOR VISIT Refill request PLAN OF CARE VITAL SIGNS MEDICATIONS Unknown [...]
--- OUTSIDE RECORDS SUMMARY | 2018-01-05 21:29 | XMS REPORT ---
Author Author LEEANN CEJA Organization [facility] Address [address] [place] [address] Care Team Providers Care Board Design Engineer Name Role Phone LEEANN CEJA Unavailable PROBLEMS Type Condition ICD9-CM Code JEI08-SY Code Onset Dates Condition Status SNOMED Code Problem Morbid obesity E66.01 Active 617171907 Problem GERD without esophagitis K21.9 Active 563428076 Problem Migraine with aura and without status migrainosus, not intractable G43.109 Active 3845108 Problem Moderate persistent asthma without complication J45.40 Active 505320542 Problem Tobacco abuse counseling Z71.6 Active 119828487 Problem Tobacco abuse Z72.0 Active 078851256 Problem Type 2 diabetes mellitus without complication, without long-term current use of insulin E11.9 Active 174225580 Problem History of juvenile rheumatoid arthritis Z87.39 Active 765324264 ALLERGIES No Known Allergies ENCOUNTERS Encounter Location Date Diagnosis [place] [id number] [place] [address] 44798- 5902 Dec, [place] [id number] [place] [address] 44434- 5622 Aug, [place] [id number] [place] [address] 98694- 7186 Aug, Type 2 diabetes mellitus without complication, without long- term current use of insulin E11.9 [place] [id number] [place] [address] 91506- 0243 14 Aug, 2017 [place] [address] 25207- 7460 08 Aug, 2017 Type 2 diabetes mellitus without complication, without long- term current use of insulin E11.9 [place] [id number] [place] [address] 46309- 1257 Aug, [place] [address] [place] [address] 64909- 4056 Aug, Type 2 diabetes mellitus without complication, without long- term current use of insulin E11.9 [place] [address] [place] [address] 32159- 5278 Jul, [place] [id number] [place] [address] 64032- 4270 Jul, [place] [address] [place] [address] 02590- 0180 Jul, Type 2 diabetes mellitus without complication, without long- term current use of insulin E11.9 ; Migraine with aura and without status migrainosus, not intractable G43.109 and BMI 40.0-44.9, adult Z68.41 [place] [id number] [place] [address] 68593- 5111 Jul, [place] [id number] [place] [address] 33571- 2880 Jun, [place] [id number] [place] [address] 48715- 8878 Jun, [place] [address] [place] [address] 46855- 2651 Jun, [place] [address] [place] [address] 83396- 9362 Jun, Type 2 diabetes mellitus without complication, without long- term current use of insulin E11.9 ; Moderate persistent asthma without complication J45.40 ; BMI 40.0-44.9, adult Z68.41 and Encounter for screening for diabetes mellitus Z13.1 [place] [address] [place] [address] 24416- 4418 May, [place] [address] [place] [address] 05942- 5489 08 Mar, 2017 Encounter to establish care with new doctor Z76.89 ; History of juvenile rheumatoid arthritis Z87.39 ; Tobacco abuse Z72.0 ; Tobacco abuse counseling Z71.6 ; GERD without esophagitis K21.9 ; Morbid obesity E66.01 and Acute serous otitis media of left ear, recurrence not specified H65.02 [facility] [address] [address]- 3698 06 Mar, 2017 [facility] [id number] [place] [address] 98131 -0465 Jun, Acute non-recurrent pansinusitis J01.40 [facility] [id number] [place] [address] [id number] 10 Sep, 2015 Stye H00.019 and Left eye pain H57.12 [facility] [id number] [place] [address] 74844- 2175 14 Oct, 2014 [facility] [id number] [place] [address] 10610- 6823 Oct, [facility] [id number] [place] [address] 27010- 4199 Jul, [facility] [id number] [place] [address] 09421- 3797 Jul, [facility] [id number] [place] [address] 70559- 5629 May, [facility] [id number] [place] [address] 84169- 1862 May, [facility] [id number] [place] [address] 82816- 0876 May, [facility] [id number] [place] [address] 33749- 9440 May, [facility] [id number] [place] [address] 58517- 2142 Feb, [facility] [id number] [place] [address] 43626- 9338 Feb, [facility] [address] [facility] [id number] [address]- 6180 Sep, [facility] [address] [facility] [id number] [address]- 1000 Sep, IMMUNIZATIONS No Known Immunizations SOCIAL HISTORY Never Assessed REASON FOR VISIT Check up- F/u for diabetes. Blood sugars have been better 180-200. Keke PLAN OF CARE Activity Details Follow Up 3 Months Reason:DM VITAL SIGNS Height 70 in 2017-07-22 Weight 294.1 lbs 2017-07-22 Temperature 98.4 degrees Fahrenheit 2017-07-22 Heart Rate 88 bpm 2017-07-22 Respiratory Rate 22 2017-07-22 BMI 42.19 kg/m2 2017-07-22 Blood pressure systolic 144 mmHg 2017-07-22 Blood pressure diastolic 88 mmHg 2017-07-22 MEDICATIONS Medication Instructions Dosage Frequency Start Date End Date Duration Status Ibuprofen 200 MG Orally every 6 hrs 1 tablet with food or milk as needed 6h Not-Taking Trulicity 0.75 MG/0.5ML Subcutaneous once weekly as directed Jul, Active Glucocard Expression Test - In Vitro Test blood sugars fasting and 2 hours after biggest meal. test blood sugar May, Active MetFORMIN HCl ER 500 mg Orally Once a day and taper up by 1 pill every 4 days to a maximum of 2 pills twice a day 1 tablet Jun, 30 day(s) Active Glucocard Expression Monitor w/Device as directed May, Active Glucocard Expression Test - In Vitro Test fasting and 2 hours after biggest meal. test blood sugar May, Active Imitrex 50 mg Orally one time and may repeat in 2 hours if needed 1 tablet as needed Jul, Active RESULTS No Results PROCEDURES Procedure Date Ordered Result Body Site COMPREHEN METABOLIC PANEL Jul 22, 2017 LIPID PANEL Jul 22, 2017 VENIPUNCT, ROUTINE* Jul 22, 2017 COMPLETE CBC W/AUTO DIFF WBC Jul 22, 2017 INSTRUCTIONS MEDICATIONS ADMINISTERED No Known Medications MEDICAL (GENERAL) HISTORY Type Description Date Medical History RA- has never been treated for this Medical History asthma Medical History MRSA right knee Surgical History orthopedic surgery- right knee at age 8 2003 Hospitalization History Surgery(s) only 2003 Hospitalization History pneumonia as an
--- OUTSIDE RECORDS SUMMARY | 2018-01-05 21:29 | XMS REPORT ---
Author Author LEEANN CEJA Organization [facility] Address [address] [place] [address] Care Team Providers Care Radiology Receptionist Name Role Phone LEEANN CEJA Unavailable PROBLEMS Type Condition ICD9-CM Code TOW26-YN Code Onset Dates Condition Status SNOMED Code Problem Morbid obesity E66.01 Active 415814239 Problem GERD without esophagitis K21.9 Active 732555448 Problem Migraine with aura and without status migrainosus, not intractable G43.109 Active 6121082 Problem Moderate persistent asthma without complication J45.40 Active 893449985 Problem Tobacco abuse counseling Z71.6 Active 682902319 Problem Tobacco abuse Z72.0 Active 975880549 Problem Type 2 diabetes mellitus without complication, without long-term current use of insulin E11.9 Active 217872794 Problem History of juvenile rheumatoid arthritis Z87.39 Active 121715891 ALLERGIES No Information ENCOUNTERS Encounter Location Date Diagnosis [place] [id number] [place] [address] 83327- 9452 Aug, [facility] [id number] [place] [address] 12784- 8247 Aug, Type 2 diabetes mellitus without complication, without long- term current use of insulin E11.9 [facility] [id number] [place] [address] 25485- 3643 Aug, [place] [id number] [place] [address] 26142- 2920 08 Aug, 2017 Type 2 diabetes mellitus without complication, without long- term current use of insulin E11.9 [facility] [id number] [place] [address] 33189- 2491 Aug, [facility] [id number] [place] [address] 09973- 1279 Aug, Type 2 diabetes mellitus without complication, without long- term current use of insulin E11.9 [place] [address] [place] [address] 20943- 4077 Jul, [place] [address] [place] [address] 41282- 1974 Jul, [place] [id number] [place] [address] 64592- 9619 Jul, Type 2 diabetes mellitus without complication, without long- term current use of insulin E11.9 ; Migraine with aura and without status migrainosus, not intractable G43.109 and BMI 40.0-44.9, adult Z68.41 [place] [address] [place] [address] 71282- 5338 Jul, [place] [id number] [place] [address] 27783- 8353 Jun, [place] [address] [place] [address] 74854- 4363 Jun, [place] [id number] [place] [address] 85912- 8772 Jun, [place] [address] [place] [address] 48110- 4131 Jun, Type 2 diabetes mellitus without complication, without long- term current use of insulin E11.9 ; Moderate persistent asthma without complication J45.40 ; BMI 40.0-44.9, adult Z68.41 and Encounter for screening for diabetes mellitus Z13.1 [place] [address] [place] [address] 77753- 1132 May, [place] [id number] [place] [address] 19021- 8821 Mar, Encounter to establish care with new doctor Z76.89 ; History of juvenile rheumatoid arthritis Z87.39 ; Tobacco abuse Z72.0 ; Tobacco abuse counseling Z71.6 ; GERD without esophagitis K21.9 ; Morbid obesity E66.01 and Acute serous otitis media of left ear, recurrence not specified H65.02 [facility] [id number] [place] [address] 67395- 6037 06 Mar, 2017 [facility] [id number] [place] [address] 02735 -2951 Jun, Acute non-recurrent pansinusitis J01.40 [facility] [id number] [place] [address] [id number] 10 Sep, 2015 Stye H00.019 and Left eye pain H57.12 [facility] [id number] [place] [address] 03549- 2478 Oct, [facility] [id number] [place] [address] 73208- 4373 Oct, [facility] [id number] [place] [address] 97679- 4122 Jul, [facility] [id number] [place] [address] 09871- 4595 Jul, [facility] [id number] [place] [address] 86844- 9263 May, [facility] [id number] [place] [address] 97581- 8010 May, [facility] [id number] [place] [address] 83344- 6713 May, [facility] [id number] [place] [address] 23202- 8650 May, [facility] [id number] [place] [address] 57295- 6329 Feb, [facility] [id number] [place] [address] 22007- 8942 Feb, [facility] [id number] [place] [address] 48649- 1218 Sep, [facility] [address] [facility] [id number] [place] [address]- 9274 Sep, IMMUNIZATIONS No Known Immunizations SOCIAL HISTORY Never Assessed REASON FOR VISIT DM ed tentatively scheduled PLAN OF CARE VITAL SIGNS MEDICATIONS Unknown [...]
--- OUTSIDE RECORDS SUMMARY | 2018-01-05 21:30 | XMS REPORT ---
Author Author SALOMÓN RACHELLE Organization [facility] Address [address] [place] [address] Care Team Providers Care National Accounts Sales Name Role Phone LORENZANAHANNAH CarolinaELE Unavailable PROBLEMS Type Condition ICD9-CM Code [id number] Code Onset Dates Condition Status SNOMED Code Problem Morbid obesity E66.01 Active 564905007 Problem GERD without esophagitis K21.9 Active 304958845 Problem Migraine with aura and without status migrainosus, not intractable G43.109 Active 7703811 Problem Moderate persistent asthma without complication J45.40 Active 085789718 Problem Tobacco abuse counseling Z71.6 Active 608765557 Problem Tobacco abuse Z72.0 Active 393290592 Problem Type 2 diabetes mellitus without complication, without long-term current use of insulin E11.9 Active 601841352 Problem History of juvenile rheumatoid arthritis Z87.39 Active 119111121 ALLERGIES No Known Allergies ENCOUNTERS Encounter Location Date Diagnosis [place] [address] [address]- [address] 20 Aug, 2017 [place] [address] [place] [id number] [place] [address] 02940- 4644 19 Aug, 2017 Type 2 diabetes mellitus without complication, without long- term current use of insulin E11.9 [facility] [address] [place] [id number] [place] [address] 09070- 9064 14 Aug, 2017 [place] [address] [place] [id number] [place] [address] 90761- 3597 08 Aug, 2017 Type 2 diabetes mellitus without complication, without long- term current use of insulin E11.9 [facility] [address] [place] [id number] [place] [address] 34964- 8674 07 Aug, 2017 [facility] [address] 15453- 1353 Aug, Type 2 diabetes mellitus without complication, without long- term current use of insulin E11.9 [place] [address] [place] [id number] [place] [address] 34919- 0985 Jul, [place] [address] [place] [id number] [place] [address] 23283- 4181 Jul, [place] [address] [place] [id number] [place] [address] 16888- 2748 Jul, Type 2 diabetes mellitus without complication, without long- term current use of insulin E11.9 ; Migraine with aura and without status migrainosus, not intractable G43.109 and BMI 40.0-44.9, adult Z68.41 [place] [address] [place] [id number] [place] [address] 66899- 0871 Jul, [place] [address] [place] [id number] [place] [address] 49272- 9642 Jun, [place] [address] [place] [id number] [place] [address] 52129- 3043 Jun, [place] [address] [place] [id number] [place] [address] 94077- 3281 Jun, [place] [address] [place] [id number] [place] [address] 61744- 3771 Jun, Type 2 diabetes mellitus without complication, without long- term current use of insulin E11.9 ; Moderate persistent asthma without complication J45.40 ; BMI 40.0-44.9, adult Z68.41 and Encounter for screening for diabetes mellitus Z13.1 [place] [address] [place] [id number] [place] [address] 87943- 2497 May, [place] [address] [place] [address] [place] [address] 85922- 8605 08 Mar, 2017 Encounter to establish care with new doctor Z76.89 ; History of juvenile rheumatoid arthritis Z87.39 ; Tobacco abuse Z72.0 ; Tobacco abuse counseling Z71.6 ; GERD without esophagitis K21.9 ; Morbid obesity E66.01 and Acute serous otitis media of left ear, recurrence not specified H65.02 [facility] [address] [place] [address] 97177- 9958 Mar, [facility] [address] [place] [id number] [place] [address] 66273 -3764 Jun, Acute non-recurrent pansinusitis J01.40 [facility] [address] [place] [id number] [place] [address] [id number] Sep, Stye H00.019 and Left eye pain H57.12 [facility] [address] [place] [id number] [place] [address] 63428- 8718 Oct, [facility] [address] [place] [id number] [place] [address] 36917- 8158 Oct, [facility] [address] [place] [address] [id number] [place] [address] 84905- 9647 Jul, [facility] [address] [place] [id number] [place] [address] 86793- 2175 Jul, [facility] [address] [place] [address] [id number] [place] [address] 61218- 6342 May, [facility] [address] [place] [id number] [place] [address] 57588- 1605 May, [facility] [address] [place] [id number] [place] [address] 54304- 2073 May, [facility] [address] [place] [id number] [place] [address] 27640- 1050 May, [facility] [address] [place] [id number] [place] [address] 53809- 0938 Feb, [facility] [address] [place] [id number] [place] [address] 16045- 1751 Feb, [facility] [address] [place] [id number] [place] [address] 12129- 3871 Sep, [facility] [address] [facility] [id number] [place] [address]- [address] Sep, IMMUNIZATIONS No Known Immunizations SOCIAL HISTORY Never Assessed REASON FOR VISIT Establish Care--Pat, -Requesting baseline lab panel PLAN OF CARE Activity Details Follow Up 3 Months Reason:[facility] VITAL SIGNS Height 70 in 2017-03-22 Weight 306.6 lbs 2017-03-22 Temperature 98.8 degrees Fahrenheit 2017-03-22 Heart Rate 96 bpm 2017-03-22 Respiratory Rate 20 2017-03-22 BMI 43.99 kg/m2 2017-03-22 Blood pressure systolic 130 mmHg 2017-03-22 Blood pressure diastolic 80 mmHg 2017-03-22 MEDICATIONS Medication Instructions Dosage Frequency Start Date End Date Duration Status Amoxicillin 500 mg Orally every 12 hrs 1 capsule 12h Mar, Mar, 10 day(s) Active RESULTS No Results PROCEDURES No Known [...]
--- OUTSIDE RECORDS SUMMARY | 2018-01-05 21:30 | XMS REPORT ---
Author Author SALOMÓN RACHELLE Organization [facility] Address [address] [place] [address] Care Team Providers Care Bonsai Tender Name Role Phone LORENZANARACHELLE Carolina Unavailable PROBLEMS Type Condition ICD9-CM Code WCJ59-SM Code Onset Dates Condition Status SNOMED Code Problem Morbid obesity E66.01 Active 245004743 Problem GERD without esophagitis K21.9 Active 840997687 Problem Migraine with aura and without status migrainosus, not intractable G43.109 Active 1031364 Problem Moderate persistent asthma without complication J45.40 Active 101379616 Problem Tobacco abuse counseling Z71.6 Active 858907159 Problem Tobacco abuse Z72.0 Active 465002940 Problem Type 2 diabetes mellitus without complication, without long-term current use of insulin E11.9 Active 248762518 Problem History of juvenile rheumatoid arthritis Z87.39 Active 528318799 ALLERGIES No Known Allergies ENCOUNTERS Encounter Location Date Diagnosis [place] [address] 09607- 9791 20 Aug, 2017 [place] [address] [place] [id number] [place] [address] 54617- 9420 19 Aug, 2017 Type 2 diabetes mellitus without complication, without long- term current use of insulin E11.9 [facility] [address] [place] [id number] [place] [address] 65372- 3913 14 Aug, 2017 [place] [address] [place] [id number] [place] [address] 51817- 9135 08 Aug, 2017 Type 2 diabetes mellitus without complication, without long- term current use of insulin E11.9 [facility] [address] [place] [id number] [place] [address] 47166- 0758 07 Aug, 2017 [facility] [address] 21662- 4256 Aug, Type 2 diabetes mellitus without complication, without long- term current use of insulin E11.9 [place] [address] [place] [id number] [place] [address] 39669- 9621 Jul, [place] [address] [place] [id number] [place] [address] 81608- 8792 Jul, [place] [address] [place] [id number] [place] [address] 35765- 6607 Jul, Type 2 diabetes mellitus without complication, without long- term current use of insulin E11.9 ; Migraine with aura and without status migrainosus, not intractable G43.109 and BMI 40.0-44.9, adult Z68.41 [place] [address] [place] [id number] [place] [address] 91812- 7345 Jul, [place] [address] [place] [id number] [place] [address] 35527- 6965 Jun, [place] [address] [place] [id number] [place] [address] 10373- 9421 Jun, [place] [address] [place] [id number] [place] [address] 68137- 0038 Jun, [place] [address] [place] [id number] [place] [address] 09126- 0572 Jun, Type 2 diabetes mellitus without complication, without long- term current use of insulin E11.9 ; Moderate persistent asthma without complication J45.40 ; BMI 40.0-44.9, adult Z68.41 and Encounter for screening for diabetes mellitus Z13.1 [place] [address] [place] [id number] [place] [address] 41670- 9395 May, [place] [address] [place] [id number] [place] [address] 68985- 3658 08 Mar, 2017 Encounter to establish care with new doctor Z76.89 ; History of juvenile rheumatoid arthritis Z87.39 ; Tobacco abuse Z72.0 ; Tobacco abuse counseling Z71.6 ; GERD without esophagitis K21.9 ; Morbid obesity E66.01 and Acute serous otitis media of left ear, recurrence not specified H65.02 [facility] [address] [place] [address] 15542- 1724 Mar, [facility] [address] [place] [id number] [place] [address] 43968 -4630 Jun, Acute non-recurrent pansinusitis J01.40 [facility] [address] [place] [id number] [place] [address] [phone] Sep, Stye H00.019 and Left eye pain H57.12 [facility] [address] [place] [id number] [place] [address] 66335- 2439 Oct, [facility] [address] [place] [id number] [place] [address] 77145- 6700 Oct, [facility] [address] [place] [id number] [place] [address] 63604- 6111 Jul, [facility] [address] [place] [id number] [place] [address] 03573- 9851 Jul, [facility] [address] [place] [id number] [place] [address] 59184- 7363 May, [facility] [address] [place] [id number] [place] [address] 72286- 0740 May, [facility] [address] [place] [id number] [place] [address] 58924- 7025 May, [facility] [address] [place] [id number] [place] [address] 64433- 5935 May, [facility] [address] [place] [id number] [place] [address] 69817- 6155 Feb, [facility] [address] [place] [id number] [place] [address] 85892- 4809 Feb, [facility] [address] [place] [id number] [place] [address] 68468- 4490 Sep, [facility] [address] [facility] [id number] [place] [address]- 7595 Sep, IMMUNIZATIONS No Known Immunizations SOCIAL HISTORY Never Assessed REASON FOR VISIT PM obtained.. Sharron SANTANA PLAN OF CARE VITAL SIGNS MEDICATIONS Unknown Medications RESULTS No Results PROCEDURES No Known procedures INSTRUCTIONS MEDICATIONS ADMINISTERED No Known Medications MEDICAL (GENERAL) HISTORY Type Description Date Medical History RA- has never been treated for this Medical History asthma Medical History MRSA right knee Surgical History orthopedic surgery- right knee at age 8 2003 Hospitalization History Surgery(s) only 2004 Hospitalization History pneumonia as an
--- NOTE | 2018-01-05 21:39 | ED Integumentary General ---
General Chief Complaint: Skin/Wound Problems Stated Complaint: L KNEE POSS SPIDER BITE Nursing Triage Note: patient c/o redness to L knee, patient believes it might be a spider bite Source: patient Exam Limitations: no limitations History of Present Illness Date Seen by Provider: Jan 05, 2018 Time Seen by Provider: 21:37 Initial Comments to ER with reports of a possible spider bite to the left anterior knee first noticed earlier today this area is tender. He states that he squeezed it hard at home and a little pus out. 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 As such, he has a multitude of ulcerated lesions to both lower extremities Timing/Duration: this morning Severity: moderate Allergies and Home Medications Allergies Coded Allergies: No Known Drug Allergies (Unverified , 02/09/09) Home Medications Methylprednisolone 4 Mg Tab.ds.pk, 4 MG PO UD Prescribed by: ANA FATIMA on 09/30/171942 Patient Home Medication List Home Medication List Reviewed: Yes Constitutional: see HPI EENTM: see HPI Respiratory: no symptoms reported Cardiovascular: no symptoms reported Genitourinary: no symptoms reported Musculoskeletal: no symptoms reported Skin: see HPI Psychiatric/Neurological: No Symptoms Reported Endocrine: No Symptoms Reported Past Xxgpwfo-Hfxbar-Smobni Hx Patient Social History Alcohol Use: Denies Use Recreational Drug Use: No Recent Foreign Travel: No Contact w/Someone Who Travel: No Recent Infectious Disease Expo: No Recent Hopitalizations: No Physical Abuse: No Sexual Abuse: No Immunizations Up To Date Tetanus Booster (TDap): Less than 5yrs Date of Influenza Vaccine: Apr 14, 2012 Seasonal Allergies Seasonal Allergies: No Past Medical History Surgeries: Yes (RIGHT KNEE ABSCESS I&D AGE 8) Orthopedic Respiratory: Yes Asthma Cardiac: No Neurological: No Reproductive Disorders: No Sexually Transmitted Disease: No Genitourinary: No Gastrointestinal: No Musculoskeletal: No Endocrine: No HEENT: No Cancer: No Psychosocial: Yes ADD/ADHD Nursing Suicide Risk Score: 0 Integumentary: Yes (?MRSA?) Blood Disorders: No Physical Exam Vital Signs Vital Signs - First Documented 01/05/18 21:29 Temp 98.5 Pulse 96 Resp 18 B/P (MAP) 173/100 (124) Pulse Ox 95 Capillary Refill : Less Than 3 Seconds General Appearance: WD/WN, no apparent distress HEENT: PERRL/EOMI, normal ENT inspection Neck: non-tender, full range of motion Respiratory: no respiratory distress, no accessory muscle use Gastrointestinal: normal bowel sounds, non tender Neurologic/Psychiatric: alert, normal mood/affect, oriented x 3 Skin: normal color, warm/dry, other (2 cm erythematous papule to the leftanterior knee without fluctuance or pustule. This is indurated. Both lower extremities from the knees distally have a multitude of erythematous lesions that are ulcerated which he states were mosquito bites that he has picked at.) Progress/Results/Core Measures Results/Orders Vital Signs/I&O 01/05/18 21:29 Temp 98.5 Pulse 96 Resp 18 B/P (MAP) 173/100 (124) Pulse Ox 95 Blood Pressure Mean: 124 Departure Impression Primary Impression: Soft tissue infection Disposition: AGAINST MEDICAL ADVICE Condition: Stable Departure-Patient Inst. Decision time for Depature: 21:39 Referrals: LEEANN CEJA (PCP) Primary Care Physician [facility]INDIRA (Family) Primary Care Physician Patient Instructions: Wound Care (DC) Add. Discharge Instructions: 1. Return to ER for any concerns 2. Give this 2-3 days and I think he'll notice improvement. Start the antibiotics as directed. Warm compresses to the area.All discharge instructions reviewed with patient and/or family. Voiced understanding. CALIN LAFLEUR APRN Jan 05, 2018 21:39
[2018-01-05] MEDS ORDERED: SULF1TAB35 PO (21:42)
[2018-01-05 21:43] VITALS: BP 173/100
== END 2018-01-05 21:43 | disposition left against medical advice (07) ==
LOC: EDUNIT# 21:22 → ER 21:23
DX: L08.9 Local infection of the skin and subcutaneous tissue, unspecified (principal); F90.9 Attention-deficit hyperactivity disorder, unspecified type; J45.909 Unspecified asthma, uncomplicated; Z86.14 Personal history of Methicillin resistant Staphylococcus aureus infection; Z98.890 Other specified postprocedural states; Z87.2 Personal history of diseases of the skin and subcutaneous tissue
CPT/HCPCS: 99282

== ENCOUNTER 2018-11-15 09:48 | Emergency (ER) | payer OTHER ==
[~2018-11-15] VITALS: Ht 185.4 cm; Wt 113.4 kg
--- OUTSIDE RECORDS SUMMARY | 2018-11-15 09:59 | XMS REPORT ---
Author Author LEEANN CEJA Organization [facility] Address [address] [place] [address] Care Team Providers Care Satellite Tv Technician Installer Name Role Phone LEEANN CEJA Unavailable PROBLEMS Type Condition ICD9-CM Code ZXH13-PG Code Onset Dates Condition Status SNOMED Code Problem GERD without esophagitis K21.9 Active 827485321 Problem Tobacco abuse Z72.0 Active 525684173 Problem Morbid obesity E66.01 Active 603561598 Problem Locking of right knee M23.91 Active 44308586885843369 Problem Migraine with aura and without status migrainosus, not intractable G43.109 Active 6893224 Problem History of juvenile rheumatoid arthritis Z87.39 Active 981798066 Problem Tobacco abuse counseling Z71.6 Active 096476392 Problem Moderate persistent asthma without complication J45.40 Active 764901983 Problem Type 2 diabetes mellitus without complication, without long-term current use of insulin E11.9 Active 941308624 ALLERGIES No Information ENCOUNTERS Encounter Location Date Diagnosis [id number] [place] [address] 74622- 5831 May, [place] [id number] [place] [address] 84423- 0120 Apr, Type 2 diabetes mellitus without complication, without long- term current use of insulin E11.9 and BMI 40.0-44.9, adult Z68.41 [place] [id number] [place] [address] 20139- 3903 Apr, Viral upper respiratory tract infection J06.9 ; Type 2 diabetes mellitus without complication, without long-term current use of insulin E11.9 and BMI 40.0-44.9, adult Z68.41 [place] [address] [place] [id number] [place] [address] 43713- 0695 Apr, Type 2 diabetes mellitus without complication, without long- term current use of insulin E11.9 [facility] [address] [address]- 8508 Mar, [facility] [address] [place] [id number] [place] [address] 71788- 0816 Mar, Locking of right knee M23.91 and BMI 40.0-44.9, adult Z68.41 [place] [address] [place] [id number] [place] [address] [phone]- 2549 Jan, Type 2 diabetes mellitus without complication, without long- term current use of insulin E11.9 [place] [address] [place] [id number] [place] [address] 66252- 7076 Dec, [place] [address] [place] [id number] [place] [address] 07565- 5406 Aug, [facility] [address] [place] [id number] [place] [address] 48900- 8307 Aug, Type 2 diabetes mellitus without complication, without long- term current use of insulin E11.9 [facility] [address] [address]- 5638 Aug, [facility] [address] [address]- 6653 Aug, Type 2 diabetes mellitus without complication, without long- term current use of insulin E11.9 [facility] [address] [address]- 7322 Aug, [facility] [address] [address]- 8627 Aug, Type 2 diabetes mellitus without complication, without long- term current use of insulin E11.9 [facility] [address] [address]- 0936 Jul, [facility] [address] [place] [id number] [place] [address] 90177- 4435 Jul, Type 2 diabetes mellitus without complication, without long- term current use of insulin E11.9 ; Migraine with aura and without status migrainosus, not intractable G43.109 and BMI 40.0-44.9, adult Z68.41 [facility] [address] 52119- 5917 Jul, [place] [address] 80235- 0559 Jun, [facility] [address] 53383- 1824 Jun, [place] [address] 50015- 8926 Jun, [place] [address] 79656- 9331 Jun, Type 2 diabetes mellitus without complication, without long- term current use of insulin E11.9 ; Moderate persistent asthma without complication J45.40 ; BMI 40.0-44.9, adult Z68.41 and Encounter for screening for diabetes mellitus Z13.[address] 52922- 9833 May, [place] [address] 43257- 4864 Mar, Encounter to establish care with new doctor Z76.89 ; History of juvenile rheumatoid arthritis Z87.39 ; Tobacco abuse Z72.0 ; Tobacco abuse counseling Z71.6 ; GERD without esophagitis K21.9 ; Morbid obesity E66.01 and Acute serous otitis media of left ear, recurrence not specified H65.02 [place] [address] 61588- 6452 Mar, [facility] [address] 45161 -4455 Jun, Acute non-recurrent pansinusitis J01.40 [facility] [address] [id number] 10 Sep, 2015 Stye H00.019 and Left eye pain H57.12 [facility] [address] [id number] [address]- 7[address] 14 Oct, 2014 [facility] [address] [id number] [address]- 8556 Oct, [facility] [address] [id number] [address]- 6463 Jul, [facility] [address] [id number], [place] [address]- 0770 Jul, [facility] [address] [facility] [id number] [address]- 5558 May, [facility] [address] [facility] [id number], [place] [address]- 6274 May, [facility] [address] 2220 May, [facility] [address] [facility] [id number], [place] [address]- 8951 May, [facility] [address] [address]- 8116 Feb, [facility] [address], [place] [address]- 4506 Feb, [facility] [address] [address]- 9956 Sep, [facility] [address] [facility] [id number] [address]- 9206 Sep, IMMUNIZATIONS No Known Immunizations SOCIAL HISTORY Never Assessed REASON FOR VISIT Sweating PLAN OF CARE VITAL SIGNS MEDICATIONS Unknown [...]
--- OUTSIDE RECORDS SUMMARY | 2018-11-15 09:59 | XMS REPORT | Clinical Summary ---
Author Author [facility] Organization [facility] Address Unknown Phone Unavailable Care Team Providers Care Tip Scourer Name Role Phone PCP Unavailable Source Comments Some departments are not documenting in the electronic medical record. If you do not see the information that you expected, contact Release of Information in the Health Information Management department at [phone] for further assistance in locating additional records.[facility] Allergies Not on File Medications Not on file Active Problems Not on file Social History Date Tobacco Use Types Packs/Day Years Used Never Assessed Sex Assigned at Date Recorded Not on file Industry Job Start Date Occupation Not on file Not on file Not on file Travel End Travel History Travel Start No recent travel history available. Last Filed Vital Signs Not on file Plan of Treatment Health Maintenance Due Date Last Done Comments PHYSICAL (COMPREHENSIVE) 2004 EXAM HIV SCREENING 2012 HPV VACCINES (1 - Male 2012 3-dose series) DTAP/TDAP VACCINES (1 - 2015 Tdap) INFLUENZA VACCINE 04/14/2019 MENINGOCOCCAL VACCINE Aged Out No longer eligible based (Raffy MALIK) on patient's age to complete this topic Results Not on filefrom Last 3 Months
--- OUTSIDE RECORDS SUMMARY | 2018-11-15 09:59 | XMS REPORT ---
Author Author Migration, Doctor Organization [facility] Address Unknown Phone Unavailable Care Team Providers Care Vice President Of Manufacturing Name Role Phone Migration, Doctor Unavailable Unavailable PROBLEMS Type Condition ICD9-CM Code XOZ43-UY Code Onset Dates Condition Status SNOMED Code Problem GERD without esophagitis K21.9 Active 710422824 Problem Morbid obesity E66.01 Active 564241324 Problem Tobacco abuse Z72.0 Active 021271259 Problem Migraine with aura and without status migrainosus, not intractable G43.109 Active 6210477 Problem Locking of right knee M23.91 Active 99189152531474594 Problem Tobacco abuse counseling Z71.6 Active 374601198 Problem History of juvenile rheumatoid arthritis Z87.39 Active 175409551 Problem Type 2 diabetes mellitus without complication, without long-term current use of insulin E11.9 Active 510707300 Problem Moderate persistent asthma without complication J45.40 Active 304878996 ALLERGIES No Information ENCOUNTERS Encounter Location Date Diagnosis [place] [id number] [place] [address] 21607- 3548 Jul, BMI 40.0-44.9, adult Z68.41 and Umbilical hernia without obstruction and without gangrene K42.9 [place] [id number] [place] [address] 65938- 0387 May, [place] [address] 20947- 1584 Apr, Type 2 diabetes mellitus without complication, without long- term current use of insulin E11.9 and BMI 40.0-44.9, adult Z68.41 [place] [address] 98390- 4727 Apr, Viral upper respiratory tract infection J06.9 ; Type 2 diabetes mellitus without complication, without long-term current use of insulin E11.9 and BMI 40.0-44.9, adult Z68.41 [place] [address] [address] 7[address] 25 Apr, 2018 Type 2 diabetes mellitus without complication, without long- term current use of insulin E11.9 [place] [id number] [address] 6536 28 Mar, 2018 [place] [id number] [place] [address] 58562- 5956 27 Mar, 2018 Locking of right knee M23.91 and BMI 40.0-44.9, adult Z68.41 [place] [id number] 2[address] 13 Jan, 2018 Type 2 diabetes mellitus without complication, without long- term current use of insulin E11.9 [place] [id number] [place] [address] 38592- 3366 Dec, [place] [id number] [place] [address] 81120- 9974 Aug, [place] [id number] [place] [address] 76603- 6973 Aug, Type 2 diabetes mellitus without complication, without long- term current use of insulin E11.9 [place] [address] [address]- 0291 14 Aug, 2017 [place] [address] [place] [address] 05767- 7747 08 Aug, 2017 Type 2 diabetes mellitus without complication, without long- term current use of insulin E11.9 [place] [address] [address] 2546 Aug, [place] [address] [place] [address] 07362- 2546 Aug, Type 2 diabetes mellitus without complication, without long- term current use of insulin E11.9 [place] [address] [place] [address] 09004- 1026 Jul, [place] [id number] [place] [address] 20877- 4514 Jul, Type 2 diabetes mellitus without complication, without long- term current use of insulin E11.9 ; Migraine with aura and without status migrainosus, not intractable G43.109 and BMI 40.0-44.9, adult Z68.[address] 97057- 8529 Jul, [place] [address] 70669- 1074 Jun, [address] 94949- 1869 Jun, [address] 71718- 1372 Jun, [address] 71738- 0096 Jun, Type 2 diabetes mellitus without complication, without long- term current use of insulin E11.9 ; Moderate persistent asthma without complication J45.40 ; BMI 40.0-44.9, adult Z68.41 and Encounter for screening for diabetes mellitus Z13.[address] 45060- 9855 May, [address] 89200- 8653 Mar, Encounter to establish care with new doctor Z76.89 ; History of juvenile rheumatoid arthritis Z87.39 ; Tobacco abuse Z72.0 ; Tobacco abuse counseling Z71.6 ; GERD without esophagitis K21.9 ; Morbid obesity E66.01 and Acute serous otitis media of left ear, recurrence not specified H65.02 [place] [id number] [place] [address] 23799- 4180 Mar, [facility] [address] [address] -[address]11 28 Dec, 2016 Acute non-recurrent pansinusitis J01.40 [facility] [address] [address] 10 Sep, 2015 Stye H00.019 and Left eye pain H57.12 [facility] [place] [address] [address]- 4511 14 Oct, 2014 [facility] [place] [address], [place] [address]- 4933 Oct, [facility] [place] [address], [place] [address]- 5714 Jul, [facility] [place] [id number] [place] [address] 38419- 6021 Jul, [facility] [place] [id number] [place] [address] 10911- 1000 May, [facility] [place] [id number] [place] [address] 59268- 6642 May, [facility] [place] [address] [place] [address] 62914- 0664 May, [facility] [place] [id number] [place] [address] 98315- 9495 May, [facility] [place] [address], [place] [address]- 9543 Feb, [facility] [place] [address], [place] [address]- 7587 Feb, [facility] [place] [address], [place] [address]- 3057 Sep, [facility] [place] [address] [place] [address] 727570- 0575 Sep, IMMUNIZATIONS No Known Immunizations SOCIAL HISTORY Never Assessed REASON FOR VISIT EMR-[facility] [place] PLAN OF CARE VITAL SIGNS MEDICATIONS Medication Instructions Dosage Frequency Start Date End Date Duration Status Zofran ODT 8 mg 1 tablet by Oral route every 8 hours PRN nausea or vomiting May, Active clonidine 0.2 mg take 1 tablet (0.2 mg) by oral route 2 times per day Sep, Active Tamiflu 75 mg 1 capsule by Oral route 2 times per day for 5 day(s) Treatment Dosing Jul, Active Tessalon Perles 100 mg 2 capsule by Oral route 3 times per day PRN Jul, Active Vyvanse 70 mg take 1 capsule (70 mg) by oral route once daily in the morning Sep, Active RESULTS No Results PROCEDURES No Known [...]
--- OUTSIDE RECORDS SUMMARY | 2018-11-15 10:00 | XMS REPORT ---
Author Author LEEANN CEJA Organization [facility] Address [address] [place] [address] Care Team Providers Care Cvt Tech Name Role Phone LEEANN CEJA Unavailable PROBLEMS Type Condition ICD9-CM Code QGL20-ZI Code Onset Dates Condition Status SNOMED Code Problem Morbid obesity E66.01 Active 338663429 Problem GERD without esophagitis K21.9 Active 758377826 Problem Migraine with aura and without status migrainosus, not intractable G43.109 Active 1929845 Problem Moderate persistent asthma without complication J45.40 Active 662468630 Problem Tobacco abuse counseling Z71.6 Active 286304086 Problem Tobacco abuse Z72.0 Active 039762621 Problem Type 2 diabetes mellitus without complication, without long-term current use of insulin E11.9 Active 846766273 Problem History of juvenile rheumatoid arthritis Z87.39 Active 169101711 ALLERGIES No Information ENCOUNTERS Encounter Location Date Diagnosis [place] [address] [place] [address] [id number] [place] [address] 73038- 8852 Jan, Type 2 diabetes mellitus without complication, without long- term current use of insulin E11.9 [place] [address] [place] [address] 78721- 9696 Dec, [place] [address] [place] [address] [id number] [place] [address] 01009- 3284 Aug, [place] [address] [id number] [place] [address] 86167- 1616 Aug, Type 2 diabetes mellitus without complication, without long- term current use of insulin E11.9 [place] [address] [place] [address] [id number] [place] [address] 78263- 7743 14 Aug, 2017 [place] [address] [address] [id number] [place] [address] 65388- 8037 Aug, Type 2 diabetes mellitus without complication, without long- term current use of insulin E11.9 [place] [address] [place] [address] 93043- 0915 Aug, [place] [address] [address] [id number] [place] [address] 47382- 4858 Aug, Type 2 diabetes mellitus without complication, without long- term current use of insulin E11.9 [place] [address] [id number] [place] [address] 89565- 0904 Jul, [place] [address] [id number] [place] [address] 55925- 7655 Jul, Type 2 diabetes mellitus without complication, without long- term current use of insulin E11.9 ; Migraine with aura and without status migrainosus, not intractable G43.109 and BMI 40.0-44.9, adult Z68.41 [place] [id number] [place] [address] 74989- 5866 Jul, [place] [address] [id number] [place] [address] 01511- 2472 Jun, [place] [address] [id number] [place] [address] 77685- 6646 Jun, [place] [address] [id number] [place] [address] 35621- 8465 Jun, [place] [address] [id number] [place] [address] 40639- 7110 Jun, Type 2 diabetes mellitus without complication, without long- term current use of insulin E11.9 ; Moderate persistent asthma without complication J45.40 ; BMI 40.0-44.9, adult Z68.41 and Encounter for screening for diabetes mellitus Z13.1 [place] [address] [place] [address] 41366- 8460 May, [place] [address] [id number] [place] [address] 39048- 8081 08 Mar, 2017 Encounter to establish care with new doctor Z76.89 ; History of juvenile rheumatoid arthritis Z87.39 ; Tobacco abuse Z72.0 ; Tobacco abuse counseling Z71.6 ; GERD without esophagitis K21.9 ; Morbid obesity E66.01 and Acute serous otitis media of left ear, recurrence not specified H65.02 [facility] [id number] [place] [address] 67439- 6397 06 Mar, 2017 [facility] [address] 29188 -3186 Jun, Acute non-recurrent pansinusitis J01.40 [facility] [address] [id number] 10 Sep, 2015 Stye H00.019 and Left eye pain H57.12 [facility] [address] [place] [id number] [place] [address] 75803- 6103 Oct, [facility] [address] 45859- 5863 Oct, [facility] [address] [id number] [place] [address] 20202- 5977 Jul, [facility] [id number] [place] [address] 17825- 4660 Jul, [facility] [id number] [place] [address] 82492- 2228 May, [facility] [id number] [place] [address] 64526- 5567 May, [facility] [address] [id number] [place] [address] 20698- 3863 May, [facility] [address] 41232- 1036 May, [facility] [address] [id number] [place] [address] [id number]- 6970 Feb, [facility] [address] [place] [address]- 1908 Feb, [facility] [address] [facility] [id number] [place] [address]- 3571 Sep, [facility] [address] [facility] [id number] [place] [address]- 2933 Sep, IMMUNIZATIONS No Known Immunizations SOCIAL HISTORY Never Assessed REASON FOR VISIT Medication question PLAN OF CARE VITAL SIGNS MEDICATIONS Medication Instructions Dosage Frequency Start Date End Date Duration Status MetFORMIN HCl ER 500 mg Orally 2 times a day 2 tablet 12h Jun, 30 day(s) Active RESULTS No Results PROCEDURES No [...]
--- OUTSIDE RECORDS SUMMARY | 2018-11-15 10:00 | XMS REPORT ---
Author Author LEEANN CEJA Organization [facility] Address [address] [place] [address] Care Team Providers Care Retail Worker Name Role Phone LEEANN CEJA Unavailable PROBLEMS Type Condition ICD9-CM Code WJL77-CW Code Onset Dates Condition Status SNOMED Code Problem GERD without esophagitis K21.9 Active 174789729 Problem Tobacco abuse Z72.0 Active 378042373 Problem Morbid obesity E66.01 Active 828408114 Problem Locking of right knee M23.91 Active 92440619183235843 Problem Migraine with aura and without status migrainosus, not intractable G43.109 Active 8939272 Problem History of juvenile rheumatoid arthritis Z87.39 Active 090747306 Problem Tobacco abuse counseling Z71.6 Active 251320104 Problem Moderate persistent asthma without complication J45.40 Active 592984587 Problem Type 2 diabetes mellitus without complication, without long-term current use of insulin E11.9 Active 211948828 ALLERGIES No Information ENCOUNTERS Encounter Location Date Diagnosis [place] [id number] [place] [address] 09452- 5592 31 Apr, 2018 [place] [id number] [place] [address] 05137- 6969 Apr, [place] [address] 82291- 1571 Apr, Type 2 diabetes mellitus without complication, without long- term current use of insulin E11.9 [place] [address] 61230- 8202 Mar, [place] [id number] [place] [address] 03607- 6705 Mar, Locking of right knee M23.91 and BMI 40.0-44.9, adult Z68.41 [place] [address] [place] [address] 03601- 7651 Jan, Type 2 diabetes mellitus without complication, without long- term current use of insulin E11.9 [place] [address] [place] [address] 87900- 0816 Dec, [place] [id number] [place] [address] 45493- 7452 Aug, [place] [id number] [place] [address] 38100- 3101 Aug, Type 2 diabetes mellitus without complication, without long- term current use of insulin E11.9 [place] [id number] [place] [address] 59274- 8638 Aug, [place] [id number] [place] [address] 82982- 8072 Aug, Type 2 diabetes mellitus without complication, without long- term current use of insulin E11.9 [place] [address] [place] [address] 34528- 8330 Aug, [place] [id number] [place] [address] 99310- 0850 Aug, Type 2 diabetes mellitus without complication, without long- term current use of insulin E11.9 [place] [address] [address]- 5786 Jul, [place] [id number] [place] [address] 41009- 6577 Jul, Type 2 diabetes mellitus without complication, without long- term current use of insulin E11.9 ; Migraine with aura and without status migrainosus, not intractable G43.109 and BMI 40.0-44.9, adult Z68.41 [place] [address] [place] [address] 86052- 5156 Jul, [place] [id number] [place] [address] 97061- 3617 Jun, [facility] [address] 62531- 7636 Jun, [facility] [address] 75005- 7829 Jun, [facility] [address] 96419- 2793 Jun, Type 2 diabetes mellitus without complication, without long- term current use of insulin E11.9 ; Moderate persistent asthma without complication J45.40 ; BMI 40.0-44.9, adult Z68.41 and Encounter for screening for diabetes mellitus Z13.1 [place] [address] 32050- 9332 May, [place] [address] 28617- 2673 Mar, Encounter to establish care with new doctor Z76.89 ; History of juvenile rheumatoid arthritis Z87.39 ; Tobacco abuse Z72.0 ; Tobacco abuse counseling Z71.6 ; GERD without esophagitis K21.9 ; Morbid obesity E66.01 and Acute serous otitis media of left ear, recurrence not specified H65.02 [place] [address] 10243- 6994 Mar, [facility] [address] 71930 -3268 Jun, Acute non-recurrent pansinusitis J01.40 [facility] [address] [id number] 10 Sep, 2015 Stye H00.019 and Left eye pain H57.12 [place] [address] 50738- 7999 14 Oct, 2014 [place] [address] 13260- 9457 13 Oct, 2014 [place] [address] 34798- 4146 Jul, [facility] [address] [facility] [id number] [address]- 1423 Jul, [facility] [address] [facility] [id number] [address]- 4566 May, [facility] [address] [facility] [id number] [place] [address]- 7942 May, [facility] [address] [facility] [id number] [address]- 9453 May, [facility] [address] [facility] [id number] [place] [address]- 8039 May, [facility] [address] [facility] [id number] [place] [address]- 9336 Feb, [facility] [address] [place] [id number] [address]- 4929 Feb, [facility] [address] [place] [id number] [address]- 1324 Sep, [facility] [address] [facility] [id number] [place] [address]- 7750 Sep, IMMUNIZATIONS No Known Immunizations SOCIAL HISTORY Never Assessed REASON FOR VISIT Repository Medication PLAN OF CARE VITAL SIGNS MEDICATIONS Medication [...]
--- OUTSIDE RECORDS SUMMARY | 2018-11-15 10:00 | XMS REPORT ---
Author Author LEEANN CEJA Organization [facility] Address [address] [place] [address] Care Team Providers Care Mine Surveyor Name Role Phone LEEANN CEJA Unavailable PROBLEMS Type Condition ICD9-CM Code TVI09-FO Code Onset Dates Condition Status SNOMED Code Problem GERD without esophagitis K21.9 Active 713047721 Problem Tobacco abuse Z72.0 Active 283720528 Problem Morbid obesity E66.01 Active 739077199 Problem Locking of right knee M23.91 Active 54740083129269036 Problem Migraine with aura and without status migrainosus, not intractable G43.109 Active 8504991 Problem History of juvenile rheumatoid arthritis Z87.39 Active 106121706 Problem Tobacco abuse counseling Z71.6 Active 213621188 Problem Moderate persistent asthma without complication J45.40 Active 877728114 Problem Type 2 diabetes mellitus without complication, without long-term current use of insulin E11.9 Active 783957032 ALLERGIES No Known Allergies ENCOUNTERS Encounter Location Date Diagnosis [address] [place] [address] 20786- 0014 Apr, Type 2 diabetes mellitus without complication, without long- term current use of insulin E11.9 and BMI 40.0-44.9, adult Z68.41 [address] [place] [address] 84859- 7764 Apr, Viral upper respiratory tract infection J06.9 ; Type 2 diabetes mellitus without complication, without long-term current use of insulin E11.9 and BMI 40.0-44.9, adult Z68.41 [place] [id number] [place] [address] 62393- 7671 Apr, Type 2 diabetes mellitus without complication, without long- term current use of insulin E11.9 [place] [id number] [address] 5776 28 Mar, 2018 [place] [address] [place] [id number] [place] [address] 900535- 8856 27 Mar, 2018 Locking of right knee M23.91 and BMI 40.0-44.9, adult Z68.41 [place] [address] [place] [id number] [place] [address] 954753- 1720 Jan, Type 2 diabetes mellitus without complication, without long- term current use of insulin E11.9 [place] [address] [place] [id number] [place] [address] 35694- 4717 Dec, [place] [address] [place] [id number] [place] [address] 43834- 5376 Aug, [place] [address] [place] [id number] [place] [address] 66063- 4725 Aug, Type 2 diabetes mellitus without complication, without long- term current use of insulin E11.9 [place] [address] [place] [address] 70076- 3425 Aug, [place] [address] [place] [id number] [place] [address] 54792- 8863 Aug, Type 2 diabetes mellitus without complication, without long- term current use of insulin E11.9 [place] [address], [place] [address]- 7799 Aug, [place] [address] [place] [address] 55470- 1645 Aug, Type 2 diabetes mellitus without complication, without long- term current use of insulin E11.9 [place] [address] [place] [id number] [place] [address] 98718- 9254 Jul, [place] [address], [place] [address] 3245 Jul, Type 2 diabetes mellitus without complication, without long- term current use of insulin E11.9 ; Migraine with aura and without status migrainosus, not intractable G43.109 and BMI 40.0-44.9, adult Z68.41 [place] [address] 63526- 7176 Jul, [place] [address] 21315- 3114 Jun, [place] [address] 74735- 7830 Jun, [place] [address] 69488- 5580 Jun, [address] 99398- 4201 Jun, Type 2 diabetes mellitus without complication, without long- term current use of insulin E11.9 ; Moderate persistent asthma without complication J45.40 ; BMI 40.0-44.9, adult Z68.41 and Encounter for screening for diabetes mellitus Z13.1 [place] [address] 29771- 3497 May, [address] 32496- 8585 Mar, Encounter to establish care with new doctor Z76.89 ; History of juvenile rheumatoid arthritis Z87.39 ; Tobacco abuse Z72.0 ; Tobacco abuse counseling Z71.6 ; GERD without esophagitis K21.9 ; Morbid obesity E66.01 and Acute serous otitis media of left ear, recurrence not specified H65.02 [place] [address] 92142- 6695 Mar, [facility] [address] [place] [address] 61980 -0017 Jun, Acute non-recurrent pansinusitis J01.40 [facility] [address] [id number] Sep, Stye H00.019 and Left eye pain H57.12 [address], [place] [address] 14 Oct, 2014 [facility] [address], [place] [address]- 7308 Oct, [facility] [address], [place] [address]- 8604 Jul, [facility] [address], [place] [address]- 9457 Jul, [facility] [address], [place] [address]- 8626 May, [facility] [address] [place] [address] 44375- 0352 May, [facility] [address], [place] [address]- 7455 May, [facility] [address] [place] [address] 55554- 2343 May, [facility] [address], [place] [address]- 8165 Feb, [facility] [address], [place] [address]- 5728 Feb, [facility] [address], [place] [address]- 4012 Sep, [facility] [address], [place] [address]- 3463 Sep, IMMUNIZATIONS No Known Immunizations SOCIAL HISTORY Never Assessed REASON FOR VISIT Diabetes --DAR Berger PLAN OF CARE Activity Details Follow Up 3 Months Reason:DM VITAL SIGNS Height 70 in 2018-05-14 Weight 284.5 lbs 2018-05-14 Temperature 97.8 degrees Fahrenheit 2018-05-14 Heart Rate 118 bpm 2018-05-14 Respiratory Rate 20 2018-05-14 BMI 40.82 kg/m2 2018-05-14 Blood pressure systolic 118 mmHg 2018-05-14 Blood pressure diastolic 62 mmHg 2018-05-14 MEDICATIONS Medication Instructions Dosage Frequency Start Date End Date Duration Status Glucocard Expression Monitor w/Device as directed May, Active Desloratadine 5 mg Orally twice a day 1 tablet 12h Apr, Active Glucocard Expression Test - In Vitro Test fasting and 2 hours after biggest meal. test blood sugar May, Active Metformin HCl 500 mg Orally twice a day 2 tabs 12h Apr, Active Glucocard Expression Test - In Vitro Test blood sugars fasting and 2 hours after biggest meal. test blood sugar May, Active Glimepiride 4 MG Orally Once a day 1 tablet with breakfast or the first main meal of the day 24h Apr, 90 days Active RESULTS No Results PROCEDURES No [...]
--- OUTSIDE RECORDS SUMMARY | 2018-11-15 10:00 | XMS REPORT ---
Author Author LEEANN CEJA Organization [facility] Address [address] [place] [address] Care Team Providers Care Matzo Forming Machine Operator Name Role Phone LEEANN CEJA Unavailable PROBLEMS Type Condition ICD9-CM Code KZI00-GG Code Onset Dates Condition Status SNOMED Code Problem Morbid obesity E66.01 Active 820263934 Problem GERD without esophagitis K21.9 Active 314008186 Problem Migraine with aura and without status migrainosus, not intractable G43.109 Active 3185626 Problem Moderate persistent asthma without complication J45.40 Active 835654508 Problem Tobacco abuse counseling Z71.6 Active 856851846 Problem Tobacco abuse Z72.0 Active 928741016 Problem Type 2 diabetes mellitus without complication, without long-term current use of insulin E11.9 Active 965053909 Problem History of juvenile rheumatoid arthritis Z87.39 Active 836337406 ALLERGIES No Information ENCOUNTERS Encounter Location Date Diagnosis [place] [address] 7[address]69- 7847 Dec, [place] [address] 92964- 5086 Aug, [place] [address] [place] [id number] [place] [address] 97970- 5392 Aug, Type 2 diabetes mellitus without complication, without long- term current use of insulin E11.9 [place] [address] 37125- 4493 14 Aug, 2017 [place] [address] 77168- 2323 08 Aug, 2017 Type 2 diabetes mellitus without complication, without long- term current use of insulin E11.9 [place] [address] 69681- 2172 Aug, [place] [address] [place] [address] 00882- 9076 Aug, Type 2 diabetes mellitus without complication, without long- term current use of insulin E11.9 [place] [address] [place] [address] 86323- 5614 Jul, [place] [address] [place] [id number] [place] [address] 00841- 7502 Jul, [place] [address] [place] [address] 78689- 8896 Jul, Type 2 diabetes mellitus without complication, without long- term current use of insulin E11.9 ; Migraine with aura and without status migrainosus, not intractable G43.109 and BMI 40.0-44.9, adult Z68.41 [place] [address] [place] [id number] [place] [address] 22838- 4538 Jul, [place] [address] [place] [address] 67500- 0853 Jun, [place] [address] [place] [id number] [place] [address] 54523- 0797 Jun, [place] [address] [place] [address] 18866- 0778 Jun, [place] [address] [place] [address] 32404- 8562 Jun, Type 2 diabetes mellitus without complication, without long- term current use of insulin E11.9 ; Moderate persistent asthma without complication J45.40 ; BMI 40.0-44.9, adult Z68.41 and Encounter for screening for diabetes mellitus Z13.1 [place] [address] [place] [address] 42794- 6711 May, [place] [address] [address]- 7296 08 Mar, 2017 Encounter to establish care with new doctor Z76.89 ; History of juvenile rheumatoid arthritis Z87.39 ; Tobacco abuse Z72.0 ; Tobacco abuse counseling Z71.6 ; GERD without esophagitis K21.9 ; Morbid obesity E66.01 and Acute serous otitis media of left ear, recurrence not specified H65.02 [facility] [address] [address] 9373 06 Mar, 2017 [facility] [address] [place] [id number] [place] [address] 50921 -3610 Jun, Acute non-recurrent pansinusitis J01.40 [facility] [address] [place] [id number] [place] [address] [id number] Sep, Stye H00.019 and Left eye pain H57.12 [facility] [address] [place] [id number] [place] [address] 83558- 2406 Oct, [facility] [address] [place] [id number] [place] [address] 07728- 4656 Oct, [facility] [address] [place] [id number] [place] [address] 13424- 7752 Jul, [facility] [address] [place] [id number] [place] [address] 16287- 3002 Jul, [facility] [address] [place] [address] 77473- 0388 May, [facility] [address] [place] [id number] [place] [address] 72433- 3486 May, [facility] [address] [place] [id number] [place] [address] 88621- 5248 May, [facility] [address] [place] [id number] [place] [address] 42208- 9450 May, [facility] [address] [place] [id number] [place] [address] 93172- 1776 Feb, [facility] [address] [place] [id number] [place] [address] 92662- 8982 Feb, [facility] [address] [facility] [id number] [address]- 3790 Sep, [facility] [address] [facility] [id number] [address]- 6863 Sep, IMMUNIZATIONS No Known Immunizations SOCIAL HISTORY Never Assessed REASON FOR VISIT PALS IN-Trulicity PLAN OF CARE VITAL SIGNS MEDICATIONS Unknown [...]
--- OUTSIDE RECORDS SUMMARY | 2018-11-15 10:00 | XMS REPORT ---
Author Author LEEANN CEJA Organization [facility] Address [address] [place] [address] Care Team Providers Care Production Technician Name Role Phone LEEANN CEJA Unavailable PROBLEMS Type Condition ICD9-CM Code GGU04-LA Code Onset Dates Condition Status SNOMED Code Problem GERD without esophagitis K21.9 Active 374446610 Problem Tobacco abuse Z72.0 Active 862108937 Problem Morbid obesity E66.01 Active 731185765 Problem Locking of right knee M23.91 Active 31729313158707167 Problem Migraine with aura and without status migrainosus, not intractable G43.109 Active 3664812 Problem History of juvenile rheumatoid arthritis Z87.39 Active 228244531 Problem Tobacco abuse counseling Z71.6 Active 063434418 Problem Moderate persistent asthma without complication J45.40 Active 156020288 Problem Type 2 diabetes mellitus without complication, without long-term current use of insulin E11.9 Active 210937091 ALLERGIES No Known Allergies ENCOUNTERS Encounter Location Date Diagnosis [address] [place] [address] 62921- 2980 Apr, Type 2 diabetes mellitus without complication, without long- term current use of insulin E11.9 and BMI 40.0-44.9, adult Z68.[address] [place] [address] 13389- 0470 Apr, Viral upper respiratory tract infection J06.9 ; Type 2 diabetes mellitus without complication, without long-term current use of insulin E11.9 and BMI 40.0-44.9, adult Z68.[address] [place] [id number] [place] [address] 72164- 3235 Apr, Type 2 diabetes mellitus without complication, without long- term current use of insulin E11.9 [place] [id number] [address]- 6681 28 Mar, 2018 [place] [address] [place] [id number] [place] [address] 162378- 0561 27 Mar, 2018 Locking of right knee M23.91 and BMI 40.0-44.9, adult Z68.41 [place] [address] [place] [id number] [place] [address] 971997- 8827 Jan, Type 2 diabetes mellitus without complication, without long- term current use of insulin E11.9 [place] [address] [place] [id number] [place] [address] 05430- 0393 Dec, [place] [address] [place] [id number] [place] [address] 67903- 3979 Aug, [place] [address] [place] [id number] [place] [address] 19443- 6098 Aug, Type 2 diabetes mellitus without complication, without long- term current use of insulin E11.9 [place] [address] [place] [address] 36187- 0447 Aug, [place] [address] [place] [id number] [place] [address] 87601- 4084 Aug, Type 2 diabetes mellitus without complication, without long- term current use of insulin E11.9 [place] [address], [place] [address]- 6842 Aug, [place] [address] [place] [address] 11816- 7636 Aug, Type 2 diabetes mellitus without complication, without long- term current use of insulin E11.9 [place] [address] [place] [id number] [place] [address] 74800- 0477 Jul, [place] [address], [place] [address]- 8074 Jul, Type 2 diabetes mellitus without complication, without long- term current use of insulin E11.9 ; Migraine with aura and without status migrainosus, not intractable G43.109 and BMI 40.0-44.9, adult Z68.41 [place] [address] 35428- 0311 Jul, [place] [address] 69347- 2511 Jun, [place] [address] 21938- 9404 Jun, [place] [address] 19574- 2358 Jun, [address] 81276- 4650 Jun, Type 2 diabetes mellitus without complication, without long- term current use of insulin E11.9 ; Moderate persistent asthma without complication J45.40 ; BMI 40.0-44.9, adult Z68.41 and Encounter for screening for diabetes mellitus Z13.1 [place] [address] 46264- 2556 May, [address] 62684- 0703 Mar, Encounter to establish care with new doctor Z76.89 ; History of juvenile rheumatoid arthritis Z87.39 ; Tobacco abuse Z72.0 ; Tobacco abuse counseling Z71.6 ; GERD without esophagitis K21.9 ; Morbid obesity E66.01 and Acute serous otitis media of left ear, recurrence not specified H65.02 [place] [address] 79528- 2663 Mar, [facility] [address] [place] [address] 38280 -0741 Jun, Acute non-recurrent pansinusitis J01.40 [facility] [address] [id number] Sep, Stye H00.019 and Left eye pain H57.12 [address] [address]- 8190 14 Oct, 2014 [facility] [address], [place] [address]- 1020 Oct, [facility] [address], [place] [address]- 8853 Jul, [facility] [address], [place] [address]- 5828 Jul, [facility] [address] [address] 1168 May, [facility] [address] [place] [id number] [place] [address] 627468- 7069 May, [facility] [address]- 1518 May, [facility] [address] [place] [address] [id number]- 3228 May, [facility] [address]- 8128 Feb, [facility] [address] [place] [id number] [address]- 6124 Feb, [facility] [address]- 5509 Sep, [facility] [address], [place] [address]- 0889 Sep, IMMUNIZATIONS No Known Immunizations SOCIAL HISTORY Never Assessed REASON FOR VISIT work release Pt was sent home from work for vomiting and low grade fever. States he has had a cough and nasal congestion for over a week. DAR Berger PLAN OF CARE Activity Details Follow Up prn Reason: VITAL SIGNS Height 70 in 2018-05-12 Weight 283.5 lbs 2018-05-12 Temperature 98.5 degrees Fahrenheit 2018-05-12 Heart Rate 108 bpm 2018-05-12 Respiratory Rate 20 2018-05-12 BMI 40.67 kg/m2 2018-05-12 Blood pressure systolic 122 mmHg 2018-05-12 Blood pressure diastolic 80 mmHg 2018-05-12 MEDICATIONS Medication Instructions Dosage Frequency Start Date End Date Duration Status Glucocard Expression Test - In Vitro Test fasting and 2 hours after biggest meal. test blood sugar May, Active Trulicity 1.5 MG/0.5ML Subcutaneous once weekly Inject 0.5ml Jul, 30 days Not-Taking Metformin HCl 500 mg Orally twice a day 2 tabs Apr, Active Glucocard Expression Monitor w/Device as directed May, Active Desloratadine 5 mg Orally twice a day 1 tablet 12h Apr, Active Glucocard Expression Test - In Vitro Test blood sugars fasting and 2 hours after biggest meal. test blood sugar May, Active RESULTS Name Result Date Reference Range A1C (IN HOUSE) 2018-05-12 A1C IN HOUSE 10.6 4.3 - 5.6 % Previous A1c 10.3 Lot [id number] Exp date 09/2019 PROCEDURES Procedure Date Ordered Result Body Site GLYCATED HEMOGLOBIN TEST May 12, 2018 INSTRUCTIONS MEDICATIONS ADMINISTERED No Known Medications MEDICAL (GENERAL) HISTORY Type Description Date Medical History RA- has never been treated for this Medical History asthma Medical History MRSA right knee Surgical History orthopedic surgery- right knee at age 8 2003 Hospitalization History Surgery(s) only 2003 Hospitalization History pneumonia as an
--- OUTSIDE RECORDS SUMMARY | 2018-11-15 10:00 | XMS REPORT ---
Author Author LEEANN CEJA Organization [facility] Address [address] [place] [address] Care Team Providers Care Ramp Service Man Name Role Phone LEEANN CEJA Unavailable PROBLEMS Type Condition ICD9-CM Code OHR37-VI Code Onset Dates Condition Status SNOMED Code Problem Morbid obesity E66.01 Active 159929710 Problem GERD without esophagitis K21.9 Active 652857445 Problem Migraine with aura and without status migrainosus, not intractable G43.109 Active 2019103 Problem Moderate persistent asthma without complication J45.40 Active 995273534 Problem Tobacco abuse counseling Z71.6 Active 646248162 Problem Tobacco abuse Z72.0 Active 488037313 Problem Type 2 diabetes mellitus without complication, without long-term current use of insulin E11.9 Active 438623526 Problem History of juvenile rheumatoid arthritis Z87.39 Active 960471638 ALLERGIES No Information ENCOUNTERS Encounter Location Date Diagnosis [place] [address] [id number] [place] [address] 73331- 7416 Jan, Type 2 diabetes mellitus without complication, without long- term current use of insulin E11.9 [place] [address] [place] [address] 33080- 5731 Dec, [place] [id number] [place] [address] 96071- 6624 Aug, [place] [id number] [place] [address] 66384- 8480 Aug, Type 2 diabetes mellitus without complication, without long- term current use of insulin E11.9 [place] [id number] [place] [address] 76705- 5352 14 Aug, 2017 [place] [id number] [place] [address] 94888- 3322 Aug, Type 2 diabetes mellitus without complication, without long- term current use of insulin E11.9 [place] [address] [place] [address] 81869- 3376 Aug, [place] [id number] [place] [address] 65588- 1029 Aug, Type 2 diabetes mellitus without complication, without long- term current use of insulin E11.9 [place] [id number] [place] [address] 88789- 6319 Jul, [place] [id number] [place] [address] 82696- 3283 Jul, Type 2 diabetes mellitus without complication, without long- term current use of insulin E11.9 ; Migraine with aura and without status migrainosus, not intractable G43.109 and BMI 40.0-44.9, adult Z68.41 [place] [id number] [place] [address] 47238- 2853 Jul, [place] [id number] [place] [address] 52442- 9849 Jun, [place] [id number] [place] [address] 41772- 0073 Jun, [place] [id number] [place] [address] 80046- 9866 Jun, [place] [id number] [place] [address] 58775- 8953 Jun, Type 2 diabetes mellitus without complication, without long- term current use of insulin E11.9 ; Moderate persistent asthma without complication J45.40 ; BMI 40.0-44.9, adult Z68.41 and Encounter for screening for diabetes mellitus Z13.1 [place] [address] [place] [address] 10037- 8534 May, [place] [id number] [place] [address] 65770- 5747 08 Mar, 2017 Encounter to establish care with new doctor Z76.89 ; History of juvenile rheumatoid arthritis Z87.39 ; Tobacco abuse Z72.0 ; Tobacco abuse counseling Z71.6 ; GERD without esophagitis K21.9 ; Morbid obesity E66.01 and Acute serous otitis media of left ear, recurrence not specified H65.02 [facility] [id number] [place] [address] 36858- 1324 06 Mar, 2017 [facility] [address] 59996 -2706 Jun, Acute non-recurrent pansinusitis J01.40 [facility] [address] [id number] 10 Sep, 2015 Sty[place] H00.019 and Left eye pain H57.12 [facility] [id number] [place] [address] 69136- 6530 Oct, [facility] [address] 09394- 3922 Oct, [facility] [id number] [place] [address] 79031- 4572 Jul, [facility] [id number] [place] [address] 86652- 3071 Jul, [facility] [id number] [place] [address] 62199- 4739 May, [facility] [id number] [place] [address] 85498- 3851 May, [facility] [id number] [place] [address] 29289- 8457 May, [facility] [address] 98512- 4432 May, [facility] [id number] [place] [address] 04956328- 9788 Feb, [facility] [address] [address]- 7368 Feb, [facility] [address] [facility] [id number] [place] [address]- 6338 Sep, [facility] [address] [facility] [id number] [place] [address]- 4437 Sep, IMMUNIZATIONS No Known Immunizations SOCIAL HISTORY Never Assessed REASON FOR VISIT Trulicity PLAN OF CARE VITAL SIGNS MEDICATIONS Unknown [...]
--- OUTSIDE RECORDS SUMMARY | 2018-11-15 10:00 | XMS REPORT ---
Author Author LEEANN CEJA [facility] Address [address] [place] [address] Care Team Providers Care Laborer Powerhouse Name Role Phone LEEANN CEJA Unavailable PROBLEMS ALLERGIES No Information ENCOUNTERS IMMUNIZATIONS No Known Immunizations SOCIAL HISTORY No smoking Hx information available REASON FOR VISIT PLAN OF CARE VITAL SIGNS MEDICATIONS Unknown Medications RESULTS No Results PROCEDURES No Known procedures INSTRUCTIONS MEDICATIONS ADMINISTERED No Known Medications MEDICAL (GENERAL) HISTORY
--- OUTSIDE RECORDS SUMMARY | 2018-11-15 10:00 | XMS REPORT ---
Author Author MEENAKSHI AGUILA [facility] Address [address] [place] [address] Care Team Providers Care Plumbing Foreman Name Role Phone MEENAKSHI AGUILA Unavailable PROBLEMS ALLERGIES No Known Allergies ENCOUNTERS IMMUNIZATIONS No Known Immunizations SOCIAL HISTORY No smoking Hx information available REASON FOR VISIT PLAN OF CARE VITAL SIGNS MEDICATIONS RESULTS PROCEDURES INSTRUCTIONS MEDICATIONS ADMINISTERED No Known Medications MEDICAL (GENERAL) HISTORY
--- OUTSIDE RECORDS SUMMARY | 2018-11-15 10:01 | XMS REPORT ---
Author Author LEEANN CEJA Organization [facility] Address [address] [place] [address] Care Team Providers Care Sample Coordinator Name Role Phone LEEANN CEJA Unavailable PROBLEMS Type Condition ICD9-CM Code UFL52-AN Code Onset Dates Condition Status SNOMED Code Problem Morbid obesity E66.01 Active 990629112 Problem GERD without esophagitis K21.9 Active 698557233 Problem Migraine with aura and without status migrainosus, not intractable G43.109 Active 7665978 Problem Moderate persistent asthma without complication J45.40 Active 132914160 Problem Tobacco abuse counseling Z71.6 Active 675231946 Problem Tobacco abuse Z72.0 Active 770367219 Problem Type 2 diabetes mellitus without complication, without long-term current use of insulin E11.9 Active 234818993 Problem History of juvenile rheumatoid arthritis Z87.39 Active 320292183 ALLERGIES No Information ENCOUNTERS Encounter Location Date Diagnosis [place] [address] 20431- 3099 Dec, [place] [address] 01066- 5527 Aug, [place] [address] [place] [address] [id number] [place] [address] 52021- 8138 Aug, Type 2 diabetes mellitus without complication, without long- term current use of insulin E11.9 [place] [address] 00692- 5247 14 Aug, 2017 [place] [address] 71461- 6235 08 Aug, 2017 Type 2 diabetes mellitus without complication, without long- term current use of insulin E11.9 [place] [address] 55324- 2795 Aug, [place] [address] [place] [address] 85554- 4802 Aug, Type 2 diabetes mellitus without complication, without long- term current use of insulin E11.9 [place] [address] [place] [address] 24581- 3742 Jul, [place] [address] [id number] [place] [address] 73547- 8542 Jul, [place] [address] [place] [address] 16527- 0034 Jul, Type 2 diabetes mellitus without complication, without long- term current use of insulin E11.9 ; Migraine with aura and without status migrainosus, not intractable G43.109 and BMI 40.0-44.9, adult Z68.41 [place] [id number] [place] [address] 34805- 2778 Jul, [place] [address] [place] [address] 49471- 9508 Jun, [place] [address] [address] [id number] [place] [address] 29649- 8793 Jun, [place] [address] [place] [address] 07468- 7728 Jun, [place] [address] [place] [address] 31063- 9739 Jun, Type 2 diabetes mellitus without complication, without long- term current use of insulin E11.9 ; Moderate persistent asthma without complication J45.40 ; BMI 40.0-44.9, adult Z68.41 and Encounter for screening for diabetes mellitus Z13.1 [place] [address] [place] [address] 47217- 4577 May, [place] [address] [address]- 0814 08 Mar, 2017 Encounter to establish care with new doctor Z76.89 ; History of juvenile rheumatoid arthritis Z87.39 ; Tobacco abuse Z72.0 ; Tobacco abuse counseling Z71.6 ; GERD without esophagitis K21.9 ; Morbid obesity E66.01 and Acute serous otitis media of left ear, recurrence not specified H65.02 [facility] [address] [address]- 9434 06 Mar, 2017 [facility] [address] [id number] [place] [address] 81151 -8613 Jun, Acute non-recurrent pansinusitis J01.40 [facility] [id number] [place] [address] [id number] Sep, Sty[place] H00.019 and Left eye pain H57.12 [facility] [id number] [place] [address] 53501- 7859 Oct, [facility] [id number] [place] [address] 79085- 7056 Oct, [facility] [id number] [place] [address] 03533- 2671 Jul, [facility] [id number] [place] [address] 43024- 1655 Jul, [facility] [address] [place] [address] 44622- 3784 May, [facility] [id number] [place] [address] 22210- 9031 May, [facility] [id number] [place] [address] 00548- 8088 May, [facility] [address] [id number] [place] [address] 85304- 7941 May, [facility] [id number] [place] [address] 95210- 2157 Feb, [facility] [id number] [place] [address] 63753- 2804 Feb, [facility] [address] [facility] [id number] [place] [address]- 0947 Sep, [facility] [address] [facility] [id number], [place] [address]- 4641 Sep, IMMUNIZATIONS No Known Immunizations SOCIAL HISTORY Never Assessed REASON FOR VISIT Requesting return call PLAN OF CARE VITAL SIGNS [...]
--- OUTSIDE RECORDS SUMMARY | 2018-11-15 10:01 | XMS REPORT ---
Author Author LEEANN CEJA Organization [facility] Address [address] [place] [address] Care Team Providers Care Volcanologist Name Role Phone LEEANN CEJA Unavailable PROBLEMS Type Condition ICD9-CM Code HZA64-UR Code Onset Dates Condition Status SNOMED Code Problem Morbid obesity E66.01 Active 444597470 Problem GERD without esophagitis K21.9 Active 170228441 Problem Migraine with aura and without status migrainosus, not intractable G43.109 Active 3871123 Problem Moderate persistent asthma without complication J45.40 Active 776204687 Problem Tobacco abuse counseling Z71.6 Active 774799833 Problem Tobacco abuse Z72.0 Active 694709784 Problem Type 2 diabetes mellitus without complication, without long-term current use of insulin E11.9 Active 995289956 Problem History of juvenile rheumatoid arthritis Z87.39 Active 841989148 ALLERGIES No Information ENCOUNTERS Encounter Location Date Diagnosis [place] [address] 71292- 3311 Dec, [place] [address] 08125- 4040 Aug, [place] [address] [place] [id number] [place] [address] 35511- 1191 Aug, Type 2 diabetes mellitus without complication, without long- term current use of insulin E11.9 [place] [address] 58603- 8986 14 Aug, 2017 [place] [address] 45188- 0783 08 Aug, 2017 Type 2 diabetes mellitus without complication, without long- term current use of insulin E11.9 [place] [address] 34628- 4282 Aug, [place] [address] [place] [address] 19412- 8689 Aug, Type 2 diabetes mellitus without complication, without long- term current use of insulin E11.9 [place] [address] [place] [address] 41988- 1434 Jul, [place] [address] [place] [id number] [place] [address] 69307- 0995 Jul, [place] [address] [place] [address] 25761- 7399 Jul, Type 2 diabetes mellitus without complication, without long- term current use of insulin E11.9 ; Migraine with aura and without status migrainosus, not intractable G43.109 and BMI 40.0-44.9, adult Z68.41 [place] [address] [place] [id number] [place] [address] 66961- 7037 Jul, [place] [address] [place] [address] 08440- 8868 Jun, [place] [address] [place] [id number] [place] [address] 92243- 2443 Jun, [place] [address] [place] [address] 51703- 4042 Jun, [place] [address] [place] [address] 68377- 9603 Jun, Type 2 diabetes mellitus without complication, without long- term current use of insulin E11.9 ; Moderate persistent asthma without complication J45.40 ; BMI 40.0-44.9, adult Z68.41 and Encounter for screening for diabetes mellitus Z13.1 [place] [address] [place] [address] 62664- 0864 May, [place] [address] [address]- 6036 08 Mar, 2017 Encounter to establish care with new doctor Z76.89 ; History of juvenile rheumatoid arthritis Z87.39 ; Tobacco abuse Z72.0 ; Tobacco abuse counseling Z71.6 ; GERD without esophagitis K21.9 ; Morbid obesity E66.01 and Acute serous otitis media of left ear, recurrence not specified H65.02 [facility] [address] [address]- 5696 06 Mar, 2017 [facility] [address] [place] [id number] [place] [address] 02479 -5858 Jun, Acute non-recurrent pansinusitis J01.40 [facility] [address] [place] [id number] [place] [address] [id number] Sep, Sty[place] H00.019 and Left eye pain H57.12 [facility] [address] [place] [id number] [place] [address] 82697- 2584 Oct, [facility] [address] [place] [id number] [place] [address] 26484- 0075 Oct, [facility] [address] [place] [id number] [place] [address] 25836- 5811 Jul, [facility] [address] [place] [address] [id number] [place] [address] 44403- 3468 Jul, [facility] [address] [place] [address] 01510- 7166 May, [facility] [address] [place] [id number] [place] [address] 21672- 4393 May, [facility] [address] [place] [id number] [place] [address] 58831- 2311 May, [facility] [address] [place] [address] [id number] [place] [address] 50769- 4083 May, [facility] [address] [place] [id number] [place] [address] 44072- 3433 Feb, [facility] [address] [place] [id number] [place] [address] 73346- 6503 Feb, [facility] [address] [facility] [id number] [address]- 1404 Sep, [facility] [address] [facility] [id number]- 5887 Sep, IMMUNIZATIONS No Known Immunizations SOCIAL HISTORY Never Assessed REASON FOR VISIT Trulicity increase request PLAN OF CARE VITAL SIGNS MEDICATIONS Medication Instructions Dosage Frequency Start Date End Date Duration Status Trulicity 1.5 MG/0.5ML Subcutaneous once weekly Inject 0.5ml Jul, 30 days Active RESULTS No Results PROCEDURES No [...]
--- OUTSIDE RECORDS SUMMARY | 2018-11-15 10:01 | XMS REPORT ---
Author Author LEEANN CEJA Organization [facility] [place] Address [address] [place] [address] Care Team Providers Care Machine Veneer Repairer Name Role Phone LEEANN CEJA Unavailable PROBLEMS Type Condition ICD9-CM Code FXR12-HA Code Onset Dates Condition Status SNOMED Code Problem Morbid obesity E66.01 Active 988404323 Problem GERD without esophagitis K21.9 Active 370193346 Problem Migraine with aura and without status migrainosus, not intractable G43.109 Active 0061217 Problem Moderate persistent asthma without complication J45.40 Active 735666687 Problem Tobacco abuse counseling Z71.6 Active 930188186 Problem Tobacco abuse Z72.0 Active 783375464 Problem Type 2 diabetes mellitus without complication, without long-term current use of insulin E11.9 Active 063468433 Problem History of juvenile rheumatoid arthritis Z87.39 Active 094739809 ALLERGIES No Information ENCOUNTERS Encounter Location Date Diagnosis [place] [address] 98731- 9594 Dec, [place] [address] 88586- 4553 Aug, [place] [address] [place] [id number] [place] [address] 17101- 3639 Aug, Type 2 diabetes mellitus without complication, without long- term current use of insulin E11.9 [place] [address] 36140- 4788 14 Aug, 2017 [place] [address] 40875- 8633 08 Aug, 2017 Type 2 diabetes mellitus without complication, without long- term current use of insulin E11.9 [place] [address] 68958- 0106 Aug, [place] [address] [place] [address] 93516- 9596 Aug, Type 2 diabetes mellitus without complication, without long- term current use of insulin E11.9 [place] [address] [place] [address] 53089- 7941 Jul, [place] [address] [place] [id number] [place] [address] 77642- 1523 Jul, [place] [address] [place] [address] 53214- 6742 Jul, Type 2 diabetes mellitus without complication, without long- term current use of insulin E11.9 ; Migraine with aura and without status migrainosus, not intractable G43.109 and BMI 40.0-44.9, adult Z68.41 [place] [address] [place] [id number] [place] [address] 75915- 4448 Jul, [place] [address] [place] [address] 12641- 9222 Jun, [place] [address] [place] [id number] [place] [address] 94197- 8801 Jun, [place] [address] [place] [address] 09926- 3054 Jun, [place] [address] [place] [address] 87401- 8184 Jun, Type 2 diabetes mellitus without complication, without long- term current use of insulin E11.9 ; Moderate persistent asthma without complication J45.40 ; BMI 40.0-44.9, adult Z68.41 and Encounter for screening for diabetes mellitus Z13.1 [place] [address] [place] [address] 43969- 1773 May, [place] [address] [address]- 0744 08 Mar, 2017 Encounter to establish care with new doctor Z76.89 ; History of juvenile rheumatoid arthritis Z87.39 ; Tobacco abuse Z72.0 ; Tobacco abuse counseling Z71.6 ; GERD without esophagitis K21.9 ; Morbid obesity E66.01 and Acute serous otitis media of left ear, recurrence not specified H65.02 [facility] [place] [address] [address]- 3691 06 Mar, 2017 [facility] [address] [place] [id number] [place] [address] 68123 -7004 Jun, Acute non-recurrent pansinusitis J01.40 [facility] [address] [place] [id number] [place] [address] [id number] Sep, Stye H00.019 and Left eye pain H57.12 [facility] [place] [address] [place] [id number] [place] [address] 43865- 0758 Oct, [facility] [place] [address] [place] [id number] [place] [address] 18061- 5906 Oct, [facility] [place] [address] [place] [id number] [place] [address] 51852- 2560 Jul, [facility] [place] [address] [place] [id number] [place] [address] 17683- 3204 Jul, [facility] [place] [address] [place] [address] 62809- 4056 May, [facility] [place] [address] [place] [id number] [place] [address] 54729- 3407 May, [facility] [place] [address] [place] [id number] [place] [address] 42171- 9029 May, [facility] [place] [address] [place] [id number] [place] [address] 17964- 0343 May, [facility] [place] [address] [place] [id number] [place] [address] 87743- 7405 Feb, [facility] [place] [address] [place] [id number] [place] [address] 91605- 0239 Feb, [facility] [place] [address] [facility] [id number] [place] [address]- 4811 Sep, [facility] [place] [address] [facility] [id number] [address]- 3207 Sep, IMMUNIZATIONS No Known Immunizations SOCIAL HISTORY Never Assessed REASON FOR VISIT samples of trulicity PLAN OF CARE VITAL SIGNS MEDICATIONS Medication Instructions Dosage Frequency Start Date End Date Duration Status Trulicity 0.75 MG/0.5ML Subcutaneous once weekly Inject 0.5ml Jul, Active RESULTS No Results PROCEDURES No Known [...]
--- OUTSIDE RECORDS SUMMARY | 2018-11-15 10:01 | XMS REPORT ---
Author Author LEEANN CEJA Organization [facility] Address [address] [place] [address] Care Team Providers Care Clinical Law Professor Name Role Phone LEEANN CEJA Unavailable PROBLEMS Type Condition ICD9-CM Code [id number] Code Onset Dates Condition Status SNOMED Code Problem Morbid obesity E66.01 Active 660922060 Problem GERD without esophagitis K21.9 Active 401379963 Problem Migraine with aura and without status migrainosus, not intractable G43.109 Active 3721067 Problem Moderate persistent asthma without complication J45.40 Active 347039124 Problem Tobacco abuse counseling Z71.6 Active 530207491 Problem Tobacco abuse Z72.0 Active 816294964 Problem Type 2 diabetes mellitus without complication, without long-term current use of insulin E11.9 Active 258220494 Problem History of juvenile rheumatoid arthritis Z87.39 Active 478889915 ALLERGIES No Information ENCOUNTERS Encounter Location Date Diagnosis [place] [address] [address] Dec, [place] [address] [address] Aug, [place] [address] [address] [place] [id number] [place] [address] Aug, Type 2 diabetes mellitus without complication, without long- term current use of insulin E11.9 [place] [address] [address] 14 Aug, 2017 [place] [address] [address] 08 Aug, 2017 Type 2 diabetes mellitus without complication, without long- term current use of insulin E11.9 [place] [address] [address] Aug, [place] [address] [place] [address] Aug, Type 2 diabetes mellitus without complication, without long- term current use of insulin E11.9 [place] [address] [place] [address] Jul, [place] [address] [place] [id number] [place] [address] Jul, [place] [address] [place] [address] Jul, Type 2 diabetes mellitus without complication, without long- term current use of insulin E11.9 ; Migraine with aura and without status migrainosus, not intractable G43.109 and BMI 40.0-44.9, adult Z68.41 [place] [address] [place] [id number] [place] [address] Jul, [place] [address] [place] [address]- [address] Jun, [place] [address] [place] [id number] [place] [address]- [address] Jun, [place] [address] [place] [address]- [address] Jun, [place] [address] [place] [address]- [address] Jun, Type 2 diabetes mellitus without complication, without long- term current use of insulin E11.9 ; Moderate persistent asthma without complication J45.40 ; BMI 40.0-44.9, adult Z68.41 and Encounter for screening for diabetes mellitus Z13.1 [place] [address] [place] [address]- [address] May, [place] [address] [address] 08 Mar, 2017 Encounter to establish care with new doctor Z76.89 ; History of juvenile rheumatoid arthritis Z87.39 ; Tobacco abuse Z72.0 ; Tobacco abuse counseling Z71.6 ; GERD without esophagitis K21.9 ; Morbid obesity E66.01 and Acute serous otitis media of left ear, recurrence not specified H65.02 [facility] [address] [address] 06 Mar, 2017 [facility] [address] [place] [id number] [place] [address] Jun, Acute non-recurrent pansinusitis J01.40 [facility] [address] [place] [id number] [place] [id number] Sep, Stye H00.019 and Left eye pain H57.12 [facility] [address] [place] [id number] [place] [address] 8[address] Oct, [facility] [address] [place] [id number] [place] [address] 17080- [address] Oct, [facility] [address] [place] [id number] [place] [address] 83137- [address] Jul, [facility] [address] [place] [id number] [place] [address] 44670- [address] Jul, [facility] [address] [place] [address] 98[address]- [address] May, [facility] [address] [place] [id number] [place] [address] 46249- [address] May, [facility] [address] [place] [id number] [place] [address] 59268- 24[address] May, [facility] [address] [place] [id number] [place] [address] 6[address]- [address] May, [facility] [address] [place] [id number] [place] [address] 213[address]- [address] Feb, [facility] [address] [place] [id number] [place] [address] 38[address]- [address] Feb, [facility] [address] [facility] [id number] [place] [address] Sep, [facility] [address] [facility] [id number] [address] Sep, IMMUNIZATIONS No Known Immunizations SOCIAL HISTORY [...]
--- OUTSIDE RECORDS SUMMARY | 2018-11-15 10:02 | XMS REPORT | Continuity of Care Document ---
Author Organization Unknown Address Unknown Allergies Active Description Code Type Severity Reaction Onset Reported/Identified Relationship to Patient Clinical Status Yes No Known Drug Allergies [id number] Drug Allergy Mild N/A 02/09/2009 Medications There [...] 380.4 IMPACTED CERUMEN 11/08/2014 ANA FATIMA DO Destiny Ot 388.70 OTALGIA NOS 12/18/2015 MAYA REYNOSO [...] B34.9 VIRAL INFECTION, UNSPECIFIED 10/17/2016 CALIN LAFLEUR [employer] Ot R11.10 VOMITING, UNSPECIFIED 09/28/2017 CALIN LAFLEUR APRN Ot F90.9 ATTENTION-DEFICIT HYPERACTIVITY DISORDER 09/28/2017 CALIN LAFLEUR APRN Ot M23.91 UNSPECIFIED INTERNAL DERANGEMENT OF RIGH 09/28/2017 CALIN LAFLEUR APRN Ot M25.561 PAIN IN RIGHT KNEE 09/28/2017 CALIN LAFLEUR APRN Ot W01.0XXA FALL SAME LEV FROM SLIP/TRIP W/O STRIKE 09/30/2017 ANA FATIMA DO Ot F90.9 ATTENTION-DEFICIT HYPERACTIVITY DISORDER 09/30/2017 ANA FATIMA DO Ot J45.909 UNSPECIFIED ASTHMA, UNCOMPLICATED 09/30/2017 ANA FATIMA DO Ot M25.561 PAIN IN RIGHT KNEE 09/30/2017 ANA FATIMA DO Ot X50.0XXA OVEREXERTION FROM STRENUOUS MOVEMENT OR 09/30/2017 ANA FATIMA DO Ot 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 10/02/2017 BRODERICK FATIMA DOA Destiny Ot F90.9 ATTENTION-DEFICIT HYPERACTIVITY DISORDER 10/02/2017 ANA FATIMA DO Ot J45.909 UNSPECIFIED ASTHMA, UNCOMPLICATED 10/02/2017 ANA FATIMA DO Ot M25.561 PAIN IN RIGHT KNEE 10/02/2017 ANA FATIMA DO Ot X50.0XXA OVEREXERTION FROM STRENUOUS MOVEMENT OR 10/02/2017 ANA FATIMA DO Ot 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 01/06/2018 CALIN LAFLEUR APRN Ot F90.9 ATTENTION-DEFICIT HYPERACTIVITY DISORDER 01/06/2018 CALIN LAFLEUR APRN Ot J45.909 UNSPECIFIED ASTHMA, UNCOMPLICATED 01/06/2018 CALIN LAFLEUR APRN Ot L08.89 OTH LOCAL INFECTIONS OF THE SKIN AND SUB 01/06/2018 CALIN LAFLEUR APRN Ot L08.9 LOCAL INFECTION OF THE SKIN AND SUBCUTAN 01/06/2018 CALIN LAFLEUR APRN Ot Z86.14 PERSONAL HISTORY OF METHICILLIN RESIS ST 01/06/2018 CALIN LAFLEUR APRN Ot Z87.2 PERSONAL HISTORY OF DISEASES OF THE SKIN 01/06/2018 CALIN LAFLEUR APRN Ot Z98.890 OTHER SPECIFIED POSTPROCEDURAL STATES 01/22/2018 CALIN LAFLEUR APRN Ot F90.9 ATTENTION-DEFICIT HYPERACTIVITY DISORDER 01/22/2018 CALIN LAFLEUR APRN Ot M23.91 UNSPECIFIED INTERNAL DERANGEMENT OF RIGH 01/22/2018 CALIN LAFLEUR APRN Ot M25.561 PAIN IN RIGHT KNEE 01/22/2018 CALIN LAFLEUR APRN Ot W01.0XXA FALL SAME LEV FROM SLIP/TRIP W/O STRIKE Procedures There is no data. Results Test Result Range Streptococcus pyogenes antigen detection - 10/16/16 18:33 Streptococcus pyogenes antigen detection NEGATIVE NEGATIVE Bacterial throat culture - 10/16/16 18:33 Bacterial throat culture [id number] NRG FREE TEXT EXTERNAL PLUS ABUNDANT NORMAL KRISS NRG QUANTITY OF GROWTH Scant Growth NRG LIPID PANEL - 07/22/17 13:41 CHOLESTEROL, TOTAL 187 mg/dL <200 HDL CHOLESTEROL 21 mg/dL >50 TRIGLYCERIDES 237 mg/dL <150 LDL-CHOLESTEROL 128 mg/dL (calc) NRG CHOL/HDLC RATIO 8.9 (calc) <5.0 NON HDL CHOLESTEROL 166 mg/dL (calc) <130 CMP - 07/22/17 13:41 GLUCOSE 190 mg/dL 65-99 UREA NITROGEN (BUN) 8 mg/dL 7-25 CREATININE 0.66 mg/dL 0.50-1.10 eGFR NON-AFR. NICARAGUAN 127 mL/min/1.73m2 > OR=60 eGFR 147 mL/min/1.73m2 > OR=60 BUN/CREATININE RATIO NOT APPLICABLE (calc) 6-22 SODIUM 137 mmol/L 135-146 POTASSIUM 4.1 mmol/L 3.5-5.3 CHLORIDE 102 mmol/L 98-110 CARBON DIOXIDE 28 mmol/L 20-31 CALCIUM 9.8 mg/dL 8.6-10.2 PROTEIN, TOTAL 7.3 g/dL 6.1-8.1 ALBUMIN 4.9 g/dL 3.6-5.1 GLOBULIN 2.4 g/dL (calc) 1.9-3.7 ALBUMIN/GLOBULIN RATIO 2.0 (calc) 1.0-2.5 BILIRUBIN, TOTAL 1.0 mg/dL 0.2-1.2 ALKALINE PHOSPHATASE 86 U/L 33-115 AST 35 U/L 10-30 ALT 50 U/L 6-29 CBC - 07/22/17 13:41 WHITE BLOOD CELL COUNT 7.7 Thousand/uL 3.8-10.8 RED BLOOD CELL COUNT 6.37 Million/uL 3.80-5.10 HEMOGLOBIN 16.7 g/dL 11.7-15.5 HEMATOCRIT 51.4 % 35.0-45.0 MCV 80.7 fL 80.0-100.0 MCH 26.2 pg 27.0-33.0 MCHC 32.5 g/dL 32.0-36.0 RDW 13.0 % 11.0-15.0 PLATELET COUNT 363 Thousand/uL 140-400 MPV 9.0 fL 7.5-12.5 ABSOLUTE NEUTROPHILS 3611 cells/uL 6694-6425 ABSOLUTE LYMPHOCYTES 2949 cells/uL 850-3900 ABSOLUTE MONOCYTES 670 cells/uL 200-950 ABSOLUTE EOSINOPHILS 393 cells/uL 15-500 ABSOLUTE BASOPHILS 77 cells/uL 0-200 NEUTROPHILS 46.9 % NRG LYMPHOCYTES 38.3 % NRG MONOCYTES 8.7 % NRG EOSINOPHILS 5.1 % NRG BASOPHILS 1.0 % NRG Encounters ACCT No. Visit Date/Time Discharge Status Pt. Type Provider Facility Loc./Unit Complaint [id number] 01/05/2018 21:23:00 01/05/2018 21:43:00 DIS Outpatient CALIN LAFLEUR APRN [facility] ER L KNEE POSS SPIDER BITE [id number] 09/30/2017 19:29:00 09/30/2017 19:51:00 DIS Emergency ANA FATIMA DO [facility] ER PREV FALL/PAIN [id number] 09/28/2017 20:09:00 09/28/2017 21:15:00 DIS Outpatient CALIN LAFLEUR APRN [facility] ER FELL,KNEE SWOLLEN [id number] 10/16/2016 18:16:00 10/16/2016 19:02:00 DIS Emergency CALIN LAFLEUR APRN [facility] ER VOMITING,SORE THROAT [id number] 12/23/2015 21:38:00 12/23/2015 23:27:00 DIS Emergency CALIN LAFLEUR APRN [facility] ER SEVERE PAIN IN HEAD AND NECK/DIZZINESS [id number] 12/18/2015 02:53:00 12/18/2015 03:43:00 DIS Emergency MAYA REYNOSO MD [facility] ER FALL [id number] 11/07/2014 23:27:00 11/08/2014 00:23:00 DIS Emergency ANA FATIMA DO [facility] ER RT EAR HEARING LOSS/ POSSIBLE FOREIGN BODY [id number] 03/10/2014 08:16:00 03/10/2014 09:27:00 DIS Emergency ANA FATIMA DO [facility] ER RIGHT KNEE INJURY [id number] 10/26/2013 18:35:00 10/26/2013 19:00:00 DIS Emergency MAYA REYNOSO MD [facility] ER BACK PAIN [id number] 04/27/2013 20:03:00 04/27/2013 22:07:00 DIS Emergency LESLYE ARRIAZA [facility] ER MULTIPLE COMPLAINTS [id number] 11/26/2012 21:54:00 11/26/2012 22:45:00 DIS Emergency ANA FATIMA DO [facility] ER MOUTH ABCESS [id number] 08/09/2012 22:17:00 Document Registration [id number] 12/14/2010 21:17:00 Document Registration [id number] 11/08/2014 02:28:00 ACT Document Registration [id number] 08/13/2018 10:40:00 08/13/2018 23:59:59 [facility] Outpatient LEEANN CEJA APRN [facility] [id number] 07/22/2017 13:00:00 Document Registration
--- NOTE | 2018-11-15 10:35 | ED Upper Extremity ---
General Chief Complaint: Laceration Stated Complaint: RIGHT THUMB LAC Nursing Triage Note: Ambulatory to rm 6. Pt reports cutting off part of R thumb while cutting potatoes on mandolin at work. Pt brought piece of thumb in ziploc bag. Pt's thumb wrapped in gauze and plastic grocery bag. Dressing removed and thumb cleaned with saline and surgical scrub. Area bleeding. Thumb wrapped in gauze and pt given pillow to rest arm above heart level. Pt does not want to file worker's comp. Nursing Sepsis Screen: No Definite Risk Source: patient Exam Limitations: no limitations History of Present Illness Date Seen by Provider: November 15, 2018 Time Seen by Provider: 10:32 Initial Comments To ER per private vehicle with reports of cutting off piece of the right thumb while cutting potatoes with a mandolin while at work at [employer]. He does not want a transient Workmen's Comp. Onset: just prior to arrival Severity: moderate Pain/Injury Location: right thumb Modifying Factors: Worse With Movement Allergies and Home Medications Allergies Coded Allergies: No Known Drug Allergies (Unverified , 02/09/09) Home Medications Methylprednisolone 4 Mg Tab.ds.pk, 4 MG PO UD Prescribed by: ANA FATIMA on 09/30/17 194 Sulfamethoxazole/Trimethoprim 1 Each Tablet, 1 EACH PO BID Prescribed by: CALIN LAFLEUR on 01/05/182141 Patient Home Medication List Home Medication List Reviewed: Yes Review of Systems Constitutional: see HPI EENTM: see HPI Respiratory: no symptoms reported Cardiovascular: no symptoms reported Genitourinary: no symptoms reported Musculoskeletal: no symptoms reported Skin: see HPI Psychiatric/Neurological: No Symptoms Reported Past Jtuzhav-Dtungd-Hguxpm Hx Patient Social History Alcohol Use: Denies Use Recreational Drug Use: No Recent Foreign Travel: No Contact w/Someone Who Travel: No Recent Infectious Disease Expo: No Recent Hopitalizations: No Physical Abuse: No Sexual Abuse: No Immunizations Up To Date Tetanus Booster (TDap): Less than 5yrs Date of Influenza Vaccine: Apr 14, 2012 Seasonal Allergies Seasonal Allergies: No Past Medical History Surgeries: Yes (RIGHT KNEE ABSCESS I&D AGE 8) Orthopedic Respiratory: Yes Asthma Cardiac: No Neurological: No Reproductive Disorders: No Sexually Transmitted Disease: No Genitourinary: No Gastrointestinal: No Musculoskeletal: No Endocrine: No HEENT: No Cancer: No Psychosocial: Yes ADD/ADHD Integumentary: Yes (?MRSA?) Blood Disorders: No Physical Exam Vital Signs Vital Signs - First Documented 11/15/18 09:52 Temp 98.0 Pulse 107 Resp 16 B/P (MAP) 140/98 (112) Pulse Ox 96 O2 Delivery Room Air Capillary Refill : Less Than 3 Seconds Height, Weight, BMI Height: 6'1.00" Weight: 250lbs. oz. 113.724989jn; 28.12 BMI Method:Estimated General Appearance: WD/WN, no apparent distress HEENT: PERRL/EOMI, normal ENT inspection Respiratory: no respiratory distress, no accessory muscle use Elbow/Forearm: normal inspection, non-tender Wrist: Yes normal inspection, Yes non-tender Hand: Right, laceration (there is a 1 cm x 1 cm skin avulsion to the very tip of the thumb with active bleeding. Finger tourniquet was applied, this achieved hemostasis, then skin glue was applied for hemostasis as well. Tourniquet was then removed.) Neurologic/Psychiatric: alert, normal mood/affect, oriented x 3 Skin: normal color, warm/dry Progress/Results/Core Measures Results/Orders Vital Signs/I&O 11/15/18 09:52 Temp 98.0 Pulse 107 Resp 16 B/P (MAP) 140/98 (112) Pulse Ox 96 O2 Delivery Room Air Blood Pressure Mean: 112 Departure Impression Primary Impression: Skin avulsion Disposition: 01 HOME, SELF-CARE Condition: Stable Departure-Patient Inst. Decision time for Depature: 10:34 Referrals: LEEANN CEJA (PCP) Primary Care Physician [facility] (Family) Primary Care Physician Patient Instructions: Laceration Repair With Glue (DC) Add. Discharge Instructions: 1. Return to ER for any concerns 2. Allow glue to follow off on its own in about 3-5 days 3. Return to ER for any redness swelling or sign of infection. You may shower allowing water run over this gently starting this evening. Do not soak this in water such as a dish sink October bathtub. Do not apply any Neosporin or petroleum-based products to this is that will dissolve the glue. Wear the finger tip protector at all times except when showering for about 3 days. All discharge instructions reviewed with patient and/or family. Voiced understanding. CALIN LAFLEUR APRN November 15, 2018 10:35
[2018-11-15 10:40] VITALS: BP 140/98
== END 2018-11-15 10:40 | disposition home or self-care (01) ==
LOC: EDUNIT# 09:48 → ER 09:50
DX: S61.112A Laceration without foreign body of left thumb with damage to nail, initial encounter (principal); J45.909 Unspecified asthma, uncomplicated; F98.8 Other specified behavioral and emotional disorders with onset usually occurring in childhood and adolescence; F90.9 Attention-deficit hyperactivity disorder, unspecified type; Z79.52 Long term (current) use of systemic steroids; W27.4XXA Contact with kitchen utensil, initial encounter; Y92.59 Other trade areas as the place of occurrence of the external cause; Y99.0 Civilian activity done for income or pay

== ENCOUNTER 2019-03-28 22:47 | Emergency (ER) | payer SELFPAY ==
[~2019-03-28] VITALS: Ht 187.9 cm; Wt 120.5 kg
[2019-03-28] MEDS ORDERED: SULF1TAB35 PO (23:04)
--- NOTE | 2019-03-28 23:04 | ED Integumentary General ---
General Chief Complaint: Skin/Wound Problems Stated Complaint: POSSIBLE BUG BITE Source: patient, spouse Exam Limitations: no limitations History of Present Illness Date Seen by Provider: Mar 28, 2019 Time Seen by Provider: 22:51 Initial Comments Patient presents to ER by private conveyance with chief complaint that yesterday he had a bug bite him on his left forearm. He did not witness what, but it was but is red hot and swollen. No fever, nausea or vomiting. Allergies and Home Medications Allergies Coded Allergies: No Known Drug Allergies (Unverified , 02/09/09) Home Medications Sulfamethoxazole/Trimethoprim 1 Each Tablet, 1 EACH PO BID Prescribed by: KRISH MINOR on 03/28/19 8842 Patient Home Medication List Home Medication List Reviewed: Yes Review of Systems Review of Systems Constitutional: No chills, No fever EENTM: No hearing loss, No ear pain Respiratory: No cough, No short of breath Cardiovascular: No chest pain, No edema Gastrointestinal: No abdominal pain, No constipation, No diarrhea Past Ucvjsvc-Eydotz-Bsauuv Hx Patient Social History Alcohol Use: Denies Use Recreational Drug Use: No Smoking Status: Never a Smoker 2nd Hand Smoke Exposure: No Recent Foreign Travel: No Contact w/Someone Who Travel: No Recent Hopitalizations: No Physical Abuse: No Sexual Abuse: No Mistreated: No Fear: No Immunizations Up To Date Tetanus Booster (TDap): Less than 5yrs Date of Influenza Vaccine: Apr 14, 2012 Seasonal Allergies Seasonal Allergies: No Past Medical History Surgeries: Yes (RIGHT KNEE ABSCESS I&D AGE 8) Orthopedic Respiratory: Yes Asthma Cardiac: No Neurological: No Reproductive Disorders: No Sexually Transmitted Disease: No Genitourinary: No Gastrointestinal: No Musculoskeletal: No Endocrine: Yes Diabetes, Non-Insulin dep HEENT: No Cancer: No Psychosocial: Yes ADD/ADHD Integumentary: Yes Recent Skin Changes Blood Disorders: No Physical Exam Vital Signs Vital Signs - First Documented 03/28/19 22:52 Temp 37.1 Pulse 94 Resp 18 B/P (MAP) 149/78 (101) Pulse Ox 98 O2 Delivery Room Air Capillary Refill : General Appearance: WD/WN, no apparent distress HEENT: PERRL/EOMI, pharynx normal Neck: full range of motion, normal inspection Cardiovascular: normal peripheral pulses, regular rate, rhythm Respiratory: no respiratory distress, no accessory muscle use Skin: rash (erythema, 4-5 cm round patch on the left forearm) Progress/Results/Core Measures Results/Orders Vital Signs/I&O 03/28/19 22:52 Temp 37.1 Pulse 94 Resp 18 B/P (MAP) 149/78 (101) Pulse Ox 98 O2 Delivery Room Air Departure Impression Primary Impression: Bug bite of shoulder or upper arm Disposition: 01 HOME, SELF-CARE Condition: Stable Departure-Patient Inst. Decision time for Depature: 23:03 Referrals: [facility] (Family) Primary Care Physician Patient Instructions: Insect Bites and Stings (DC) Add. Discharge Instructions: Keep it clean with regular soap and water. Warm compresses several times a day. Echo from 1 tablet twice a day for the next 5 days. If he gets better continued for 2 more days and stop. If it persists follow up with primary care. All discharge instructions reviewed with patient and/or family. Voiced understanding. Scripts Sulfamethoxazole/Trimethoprim (Bactrim Ds Tablet) 1 Each Tablet 1 EACH PO BID for 7 Days, #14 TAB 0 Refills Prov: KRISH MINOR 03/28/19 KRISH MINOR Mar 28, 2019 23:04
[2019-03-28 23:07] VITALS: BP 149/78
== END 2019-03-28 23:06 | disposition home or self-care (01) ==
LOC: EDUNIT# 22:47 → ER 22:49
DX: S40.262A Insect bite (nonvenomous) of left shoulder, initial encounter (principal); S40.862A Insect bite (nonvenomous) of left upper arm, initial encounter; J45.909 Unspecified asthma, uncomplicated; E11.9 Type 2 diabetes mellitus without complications; F90.9 Attention-deficit hyperactivity disorder, unspecified type; W57.XXXA Bitten or stung by nonvenomous insect and other nonvenomous arthropods, initial encounter
CPT/HCPCS: 99282

== ENCOUNTER 2019-05-25 14:20 | Emergency (ER) | payer OTHER ==
[~2019-05-25] VITALS: Ht 175 cm; Wt 120.5 kg
[2019-05-25] MEDS ORDERED: ACETAMINOPHEN 325 MG TABLET PO STA (15:18)
--- NOTE | 2019-05-25 15:18 | ED Upper Extremity ---
General Chief Complaint: Laceration Stated Complaint: FINGER LAC Nursing Triage Note: Pt amb to triage with c/o finger lac. Pt reports @ approx 1400 on this day, while @ work ([employer]), he was cutting cooked chicken and cut the tip of his Lt third finger. Pt arrives with drsg to lac. Controlled bleeding noted. Reports he is unaware if he is current on is tetanus vaccine. Nursing Sepsis Screen: No Definite Risk History of Present Illness Date Seen by Provider: May 25, 2019 Time Seen by Provider: 14:45 Initial Comments 23-year-old male presents with a laceration to the tip of his left third finger. He was cutting cooked chicken at work when the knife slipped and he cut himself. He is right-hand dominant. He denies any previous injuries to his left third finger. He is unsure of his last tetanus injection. Onset: just prior to arrival Pain/Injury Location: left 3rd finger Method of Injury: incised Modifying Factors: Improves With Rest Allergies and Home Medications Allergies Coded Allergies: No Known Drug Allergies (Unverified , 02/09/09) Home Medications Cephalexin 500 Mg Tablet, 500 MG PO TID Prescribed by: DAVID VIDAL on 05/25/19 1654 Sulfamethoxazole/Trimethoprim 1 Each Tablet, 1 EACH PO BID Prescribed by: KRISH MINOR on 03/28/19 2304 Patient Home Medication List Home Medication List Reviewed: Yes Review of Systems Constitutional: no symptoms reported, see HPI Skin: see HPI, other (laceration left third finger.) All Other Systems Reviewed Negative Unless Noted: Yes Past Bvvsvut-Dtyvnb-Mrsywi Hx Past Med/Social Hx: Reviewed Nursing Past Med/Soc Hx Patient Social History 2nd Hand Smoke Exposure: No Recent Foreign Travel: No Contact w/Someone Who Travel: No Recent Infectious Disease Expo: No Recent Hopitalizations: No Immunizations Up To Date Tetanus Booster (TDap): Less than 5yrs Date of Influenza Vaccine: Apr 14, 2012 Seasonal Allergies Seasonal Allergies: No Past Medical History Surgeries: Yes (RIGHT KNEE ABSCESS I&D AGE 8) Orthopedic Respiratory: Yes Asthma Cardiac: No Neurological: No Reproductive Disorders: No Sexually Transmitted Disease: No Genitourinary: No Gastrointestinal: No Musculoskeletal: No Endocrine: Yes Diabetes, Non-Insulin dep HEENT: No Cancer: No Psychosocial: Yes ADD/ADHD Integumentary: Yes Recent Skin Changes Blood Disorders: No Physical Exam Vital Signs Vital Signs - First Documented 05/25/19 14:32 Temp 36.8 Pulse 115 Resp 18 B/P (MAP) 145/89 (107) Pulse Ox 98 O2 Delivery Room Air Capillary Refill : Less Than 3 Seconds Height, Weight, BMI Height: 6'1.00" Weight: 250lbs. oz. 113.642500sf; 39.00 BMI Method:Estimated General Appearance: WD/WN, no apparent distress Cardiovascular: normal peripheral pulses, regular rate, rhythm Respiratory: chest non-tender, lungs clear, normal breath sounds Hand: Left, laceration (1.5 cm laceration on the ulnar side extending into the nail. Full resisted flex/ext of the 3rd finger V/V. Cap refill < 2 sec. Sensation to light tough intact. ) Procedures/Interventions Wound Location: Upper Extremities (left 3rd finger) Other Wound Location 1.5 Wound's Depth, Shape: superficial Wound Explored: clean Irrigated w/ Saline (ccs): 100 Betadine Prep?: Yes Anesthesia: 1% Lidocaine Volume Anesthetic (ccs): 5 Suture: Ethlion Suture Size: 5-0 Number of Sutures: 3 Sterile Dressing Applied?: Yes Progress Wound well approximated. Patient tolerated well. Bulky sterile dressing applied with tube gauze. Progress/Results/Core Measures Results/Orders My Orders Orders - DAVID VIDAL Lidocaine 1% Inj 50 Ml (Xylocaine 1% Inj (05/25/19 15:30) Dipht,Pertuss(Acell),Tet Adult (Boostrix (05/25/19 15:30) Acetaminophen Tablet/Caplet (Tylenol T (05/25/19 15:18) Lidocaine 1% Inj 20 Ml (Xylocaine 1% Inj (05/25/19 15:30) Lidocaine 1% Inj 20 Ml (Xylocaine 1% Inj (05/25/19 15:29) Finger(S) (05/25/19 15:52) Medications Given in ED Current Medications Medications Dose Ordered Sig/Omar Route Start Time Stop Time Status Last Admin Dose Admin Diphtheria/ Tetanus/Acell Pertussis 0.5 ml ONCE ONCE IM 05/25/19 15:30 05/25/19 15:31 DC 05/25/19 15:35 0.5 ML Lidocaine HCl 20 ml ONCE ONCE INJ 05/25/19 15:30 05/25/19 15:31 DC 05/25/19 16:00 20 ML Vital Signs/I&O 05/25/19 05/25/19 14:32 17:03 Temp 36.8 36.8 Pulse 115 90 Resp 18 18 B/P (MAP) 145/89 (107) 138/85 (107) Pulse Ox 98 98 O2 Delivery Room Air Room Air Blood Pressure Mean: 107 POS Departure Impression Primary Impression: Laceration of left middle finger with damage to nail Qualified Codes: S61.313A - Laceration without foreign body of left middle finger with damage to nail, initial encounter Disposition: HOME, SELF-CARE Condition: Improved Departure-Patient Inst. Decision time for Depature: 16:45 Referrals: [facility] [place] (PCP/Family) Primary Care Physician Patient Instructions: Laceration Repair With Stitches (DC) Add. Discharge Instructions: Keep wound clean and dry. Wear gloves at all times when working. Leave dressing on until Sat, then you may remove and shower. Do not submerge the finger in a sink of water, bathtub, hot tub or pool. Clean with peroxide after showering. Cover with dressing or bandaid. Return to emergency department or see your primary care provider in 7-10 days for suture removal. Take antibiotics as prescribed. Ice and elevate left third finger for 20 minutes every 2 hours for pain or throbbing. You may alternate between Tylenol 650 mg and ibuprofen 600 mg every 4 hours for pain. Return to emergency department for new, urgent health care problems. All discharge instructions reviewed with patient and/or family. Voiced understanding. Scripts Cephalexin (Cephalexin) 500 Mg Tablet 500 MG PO TID, #15 TAB 0 Refills Prov: DAVID VIDAL 05/25/19 DAVID VIDAL May 25, 2019 15:18 POS
[2019-05-25] MEDS ORDERED: LIDOCAINE 1% INJ 20 ML 20 ML VIAL ONE (15:29)
[2019-05-25] MEDS ORDERED: TETANUS,DIPTH,PERTUSS P/F (BOOSTRIX) 0.5 ML VIAL IM ONE (15:30)
[2019-05-25] MEDS ORDERED: LIDOCAINE 1% INJ 20 ML 20 ML VIAL INJ ONE (15:30)
[2019-05-25] MEDS ORDERED: LIDOCAINE 1% INJ 50 ML (XYLOCAINE) VIAL IJ ONE (15:30)
--- NOTE | 2019-05-25 16:44 | Diagnostic Imaging Report ---
INDICATION: Injury to left 3rd finger AP, oblique, and lateral views of the left 3rd finger are obtained. No fracture or acute bony abnormality is seen. There is soft tissue swelling of the 3rd digit distally. There is no radiopaque foreign body. IMPRESSION: No evidence of fracture or radiopaque foreign body. Dictated by: Dictated on workstation # [id number]
[2019-05-25] MEDS ORDERED: CEPH500T PO (16:54)
[2019-05-25 17:03] VITALS: BP 138/85
== END 2019-05-25 17:03 | disposition home or self-care (01) ==
LOC: EDUNIT# 14:20 → ER 14:22
DX: S61.313A Laceration without foreign body of left middle finger with damage to nail, initial encounter (principal); J45.909 Unspecified asthma, uncomplicated; E11.9 Type 2 diabetes mellitus without complications; F90.9 Attention-deficit hyperactivity disorder, unspecified type; Z23 Encounter for immunization; W26.0XXA Contact with knife, initial encounter; Y92.59 Other trade areas as the place of occurrence of the external cause
CPT/HCPCS: 12001; 73140; 90715

== ENCOUNTER 2020-02-13 17:46 | Emergency (ER) | payer OTHER ==
[~2020-02-13] VITALS: Ht 187.9 cm; Wt 127.0 kg
[~2020-02-13 17:46] MED LIST changes: +CEPH500T PO; +METF-865; -METF500T8; -TRAM50TA2 PO; +TRM50T PO
--- NOTE | 2020-02-13 17:49 | ED Head Injury ---
General Stated Complaint: HEAD PAIN FROM INJURY Source: patient Exam Limitations: no limitations History of Present Illness Date Seen by Provider: Feb 13, 2020 Time Seen by Provider: 17:49 Initial Comments [place] fell on left side of head near the hoahaoism at 1400 today while at work at [employer]. Now c/o headache, dizziness, nausea. Denies LOC or neck pain. Occurred: just prior to arrival Severity: moderate Method of Injury: unknown Loss of Consciousness: no loss of consciousness Associated Systoms: Headaches, Nausea/Vomiting Allergies and Home Medications Allergies Coded Allergies: No Known Drug Allergies (Unverified , 02/09/09) Home Medications Cephalexin 500 Mg Tablet, 500 MG PO TID Prescribed by: DAVID VIDAL on 05/25/19 1654 Sulfamethoxazole/Trimethoprim 1 Each Tablet, 1 EACH PO BID Prescribed by: KRISH MINOR on 03/28/19 8211 Patient Home Medication List Home Medication List Reviewed: Yes Review of Systems Review of Systems Constitutional: see HPI Eyes: No Symptoms Reported Ears, Nose, Mouth, Throat: no symptoms reported Respiratory: no symptoms reported Cardiovascular: no symptoms reported Genitourinary: no symptoms reported Musculoskeletal: no symptoms reported Skin: no symptoms reported Psychiatric/Neurological: See HPI, Headache Endocrine: No Symptoms Reported Hematologic/Lymphatic: No Symptoms Reported Physical Exam Vital Signs Capillary Refill : Height, Weight, BMI Height: '" Weight: lbs. oz. kg; BMI Method: General Appearance: WD/WN, no apparent distress HEENT: PERRL/EOMI, normal ENT inspection, TMs normal, other (no swelling or ecchymosis or laceration of the area where the grill struck him. no lerner sign or raccoon eyes or hemotympanum. ) Neck: non-tender, full range of motion Respiratory: no respiratory distress, no accessory muscle use Extremities: normal range of motion, non-tender Psychiatric: alert, oriented x 3 Crainal Nerves: normal hearing, normal speech, PERRL Skin: normal color, warm/dry Ben Coma Score Best Eye Response: (4) Open Spontaneously Best Verbal Response: (5) Oriented Best Motor Response: (6) Obeys Commands [place] Total: 15 Progress/Results/Core Measures Results/Orders My Orders Orders - CALIN LAFLEUR APRN Ct Head Wo (02/13/20 17:54) Ibuprofen Tablet (Motrin Tablet) (02/13/20 18:00) Ondansetron Injection (Zofran Injectio (02/13/20 18:00) Departure Impression Primary Impression: Concussion Qualified Codes: S06.0X0A - Concussion without loss of consciousness, initial encounter Disposition: 01 HOME, SELF-CARE Condition: Stable Departure-Patient Inst. Decision time for Depature: 17:57 Patient Instructions: Concussion in Adults Add. Discharge Instructions: 1. Return to ER for any concerns 2. use tylenol and motrin for pain 3. follow up with your doctor next week. Work/School Note: Work Release Form Date Seen in the Emergency Department: Feb 13, 2020 CALIN LAFLEUR APRN Feb 13, 2020 17:49
[2020-02-13 17:50] VITALS: BP 147/101
[2020-02-13] MEDS ORDERED: ONDANSETRON 4 MG (ZOFRAN) ORAL DISSOLVE TAB PO STA (17:59)
[2020-02-13] MEDS ORDERED: IBUPROFEN 800 MG (MOTRIN) TAB PO ONE (18:00)
[2020-02-13] MEDS ORDERED: ONDANSETRON 4 MG/2 ML (SDV) Z0FRAN IVP ONE (18:00)
--- NOTE | 2020-02-13 18:47 | Diagnostic Imaging Report ---
INDICATION: Injury to head and neck TECHNIQUE: Multiple contiguous axial images were obtained through the brain and cervical spine without the use of intravenous contrast. Sagittal and coronal reformations through the cervical spine were then performed. Auto Exposure Controls were utilized during the CT exam to meet ALARA standards for radiation dose reduction. CT BRAIN FINDINGS: There are no extra-axial fluid collection. No intracranial hemorrhage. No intracranial mass effect or midline shift. Ventricles are normal in size and position. There is no focal parenchymal abnormality in the brain. Calvarial windows show no fracture. CT CERVICAL SPINE FINDINGS: There is no evidence of cervical spine fracture. There is no subluxation or malalignment. IMPRESSION: 1. Negative CT head. 2. Negative CT cervical spine. Dictated by: Dictated on workstation # [id number]
== END 2020-02-13 18:45 | disposition home or self-care (01) ==
LOC: EDUNIT# 17:46 → ER 17:49
DX: S06.0X0A Concussion without loss of consciousness, initial encounter (principal); R40.2142 Coma scale, eyes open, spontaneous, at arrival to emergency department; R40.2252 Coma scale, best verbal response, oriented, at arrival to emergency department; R40.2362 Coma scale, best motor response, obeys commands, at arrival to emergency department; W19.XXXA Unspecified fall, initial encounter; Y92.59 Other trade areas as the place of occurrence of the external cause; Y99.0 Civilian activity done for income or pay
CPT/HCPCS: 70450; 72125

== ENCOUNTER 2021-09-18 05:10 | Emergency (ER) | payer SELFPAY | END 2021-09-18 05:30 | disposition left against medical advice (07) | LOC: EDUNIT# 05:10 → ER 05:12 | DX: R05.9 Cough, unspecified (principal); R09.81 Nasal congestion | CPT/HCPCS: 99281 ==

== ENCOUNTER 2022-04-27 15:31 | Emergency (ER) | payer SELFPAY ==
[~2022-04-27] VITALS: Ht 185.5 cm; Wt 125.0 kg
[2022-04-27 15:35] VITALS: BP 145/93
[2022-04-27] MEDS ORDERED: LACTATED RINGERS 1,000 ML IV STA (15:41)
[2022-04-27 16:07] LABS: ALBUMIN 4.8 GM/DL (3.2-4.5); BASOPHILS # (AUTO) 0.1 10^3/uL (0.0-0.1); BASOPHILS % (AUTO) 1 % (0-10); CHLORIDE 103 MMOL/L (98-107); EOSINOPHILS # (AUTO) 0.1 10^3/uL (0.0-0.3); EOSINOPHILS % (AUTO) 1 % (0-10); HEMATOCRIT 50 % (40-54); HEMOGLOBIN 17.2 g/dL (13.3-17.7); LYMPHOCYTES # (AUTO) 2.8 10^3/uL (1.0-4.0); LYMPHOCYTES % (AUTO) 28 % (12-44); MEAN CORPUSCULAR HEMOGLOBIN 27 pg (25-34); MEAN CORPUSCULAR HGB CONC 34 g/dL (32-36); MEAN CORPUSCULAR VOLUME 80 fL (80-99); MEAN PLATELET VOLUME 8.7 fL (9.0-12.2); MONOCYTES # (AUTO) 0.7 10^3/uL (0.0-1.0); MONOCYTES % (AUTO) 7 % (0-12); NEUTROPHILS # (AUTO) 6.1 10^3/uL (1.8-7.8); NEUTROPHILS % (AUTO) 63 % (42-75); PLATELET COUNT 310 10^3/uL (130-400); SODIUM 138 MMOL/L (135-145); WHITE BLOOD COUNT 9.7 10^3/uL (4.3-11.0)
[2022-04-27 16:09] LABS: GLUCOSE 133 MG/DL (70-105); TOTAL PROTEIN 8.1 GM/DL (6.4-8.2)
[2022-04-27 16:10] LABS: CARBON DIOXIDE 28 MMOL/L (21-32)
[2022-04-27 16:11] LABS: BILIRUBIN,TOTAL 0.9 MG/DL (0.1-1.0)
[2022-04-27 16:13] LABS: ALKALINE PHOSPHATASE 67 U/L (40-136); CREATININE SERUM 0.82 MG/DL (0.60-1.30); GFR ESTIMATED 126
[2022-04-27 16:14] LABS: BUN/CREATININE RATIO 13
[2022-04-27 16:16] LABS: ALANINE AMINOTRANSFERASE 47 U/L (0-55)
[2022-04-27 16:32] LABS: BILIRUBIN,URINE NEGATIVE (NEGATIVE); CLARITY,URINE CLEAR; COLOR,URINE YELLOW; GLUCOSE, URINE (UA) 3+ (NEGATIVE); KETONES,URINE NEGATIVE (NEGATIVE); LEUKOCYTE ESTERASE ,URINE NEGATIVE (NEGATIVE); NITRITE,URINE NEGATIVE (NEGATIVE); PH,URINE 7.5 (5-9); PROTEIN,URINE NEGATIVE (NEGATIVE)
[2022-04-27 16:50] LABS: BACTERIA,URINE TRACE /HPF; RBC,URINE RARE /HPF; SQUAMOUS EPITHELIAL CELL,UR RARE /HPF
--- NOTE | 2022-04-27 16:55 | ED General ---
General Chief Complaint: Cardiac/General Problems Stated Complaint: HYPERTENSION Nursing Triage Note: PT HERE PER EMS FROM [facility], [facility] SENT HIM TO ED FOR HTN, NO REPORT FROM [facility] SO UNSURE OF BP AT [facility]. PT STATES INTERMITTENT HEADACHES AND DIZZINESS FOR ABOUT 1 MONTH. PT STATES HE WAS AT [facility] TO GET A NEW GLUCOMETER AND HAD NO OTHER COMPLAINTS THERE. Source of Information: Patient Exam Limitations: No Limitations History of Present Illness Date Seen by Provider: Apr 27, 2022 Time Seen by Provider: 15:33 Initial Comments Here by EMS from [facility] where he had presented to get test strips. He reported to them that he had some dizziness and his blood pressure was a little elevated on their evaluation. He was not really concerned about that but they were. They did do an EKG and sent him here for further evaluation. Denies chest pain, breathing problems, weakness or any other concerns. Dizziness episode occurred a couple weeks ago. Overall he has no complaints currently. Denies upper respiratory symptoms or any other concerns. Reports eating and drinking okay. He can manage his blood sugar but just needed to test strips which he does have now. Timing/Duration: Intermittent, Other (2 weeks) Severity: Mild Associated Systoms: No Chest Pain, No Fever/Chills, No Nausea/Vomiting, No Shortness of Air, No Weakness Allergies and Home Medications Allergies Coded Allergies: No Known Drug Allergies (Unverified , 02/09/09) Patient Home Medication List Home Medication List Reviewed: Yes Cephalexin (Cephalexin) 500 Mg Tablet, 500 MG PO TID Prescribed by: DAVID VIDAL on 05/25/19 1654 Metformin HCl (Metformin HCl ER) 500 Mg Tab.er.24h, (Reported) Entered as Reported by: NARGIS LIN on 09/30/172002 Sulfamethoxazole/Trimethoprim (Bactrim Ds Tablet) 1 Each Tablet, 1 EACH PO BID Prescribed by: KRISH MINOR on 03/28/19 2304 Review of Systems Review of Systems Constitutional: see HPI; No chills, No fever EENTM: No nose congestion, No throat pain Respiratory: No cough, No short of breath Gastrointestinal: diarrhea (Intermittently few times a week); No vomiting Genitourinary: No dysuria, No pain Musculoskeletal: No back pain, No muscle pain Psychiatric/Neurological: Denies Weakness; Other (Dizziness) Past Fvgfezq-Spnsnu-Cdfgpj Hx Patient Social History Tobacco Use?: No Substance use?: No Alcohol Use?: Yes Alcohol Frequency: Several times a month Immunizations Up To Date Tetanus Booster (TDap): Less than 5yrs Seasonal Allergies Seasonal Allergies: No Past Medical History Surgeries: Yes (RIGHT KNEE ABSCESS I&D AGE 8) Orthopedic Respiratory: Yes Asthma Cardiac: No Neurological: No Reproductive Disorders: No Sexually Transmitted Disease: No Genitourinary: No Gastrointestinal: No Musculoskeletal: No Endocrine: Yes Diabetes, Non-Insulin dep HEENT: No Cancer: No Psychosocial: Yes ADD/ADHD Integumentary: No Recent Skin Changes Blood Disorders: No Family Medical History Reviewed Nursing Family Hx No Pertinent Family Hx Physical Exam Vital Signs Vital Signs - First Documented 04/27/22 15:35 Temp 36.6 Pulse 99 Resp 18 B/P (MAP) 145/93 (110) Pulse Ox 97 O2 Delivery Room Air Capillary Refill : Less Than 3 Seconds Height, Weight, BMI Height: 6'1.00" Weight: 250lbs. oz. 113.388358to; 36.00 BMI Method:Estimated General Appearance: No Apparent Distress, WD/WN HEENT: PERRL/EOMI, Pharynx Normal Neck: Non Tender, Supple Respiratory: Lungs Clear, Normal Breath Sounds Cardiovascular: Regular Rate, Rhythm, No Murmur Gastrointestinal: Non Tender, Soft Neurologic/Psychiatric: Alert, Oriented x3 Skin: Normal Color, Warm/Dry Procedures/Interventions Suture Size: 5-0 Progress/Results/Core Measures Suspected Sepsis SIRS Temperature: Pulse: 99 Respiratory Rate: 18 Laboratory Tests 04/27/22 15:45: White Blood Count 9.7 Blood Pressure 145 /93 Mean: 110 Laboratory Tests 04/27/22 15:45: Creatinine 0.82, Platelet Count 310, Total Bilirubin 0.9 Results/Orders Lab Results Laboratory Tests Test 04/27/22 15:45 04/27/22 16:20 Range/Units White Blood Count 9.7 4.3-11.0 10^3/uL Red Blood Count 6.28 H 4.30-5.52 10^6/uL Hemoglobin 17.2 13.3-17.7 g/dL Hematocrit 50 40-54 % Mean Corpuscular Volume 80 80-99 fL Mean Corpuscular Hemoglobin 27 25-34 pg Mean Corpuscular Hemoglobin Concent 34 32-36 g/dL Red Cell Distribution Width 13.1 10.0-14.5 % Platelet Count 310 130-400 10^3/uL Mean Platelet Volume 8.7 L 9.0-12.2 fL Immature Granulocyte % (Auto) 0 % Neutrophils (%) (Auto) 63 42-75 % Lymphocytes (%) (Auto) 28 12-44 % Monocytes (%) (Auto) 7 0-12 % Eosinophils (%) (Auto) 1 0-10 % Basophils (%) (Auto) 1 0-10 % Neutrophils # (Auto) 6.1 1.8-7.8 10^3/uL Lymphocytes # (Auto) 2.8 1.0-4.0 10^3/uL Monocytes # (Auto) 0.7 0.0-1.0 10^3/uL Eosinophils # (Auto) 0.1 0.0-0.3 10^3/uL Basophils # (Auto) 0.1 0.0-0.1 10^3/uL Immature Granulocyte # (Auto) 0.0 0.0-0.1 10^3/uL Sodium Level 138 135-145 MMOL/L Potassium Level 4.0 3.6-5.0 MMOL/L Chloride Level 103 98-107 MMOL/L Carbon Dioxide Level 28 21-32 MMOL/L Anion Gap 7 5-14 MMOL/L Blood Urea Nitrogen 11 7-18 MG/DL Creatinine 0.82 0.60-1.30 MG/DL Estimat Glomerular Filtration Rate 126 BUN/Creatinine Ratio 13 Glucose Level 133 H 70-105 MG/DL Calcium Level 10.0 8.5-10.1 MG/DL Corrected Calcium 8.5-10.1 MG/DL Total Bilirubin 0.9 0.1-1.0 MG/DL Aspartate Amino Transf (AST/SGOT) 42 H 5-34 U/L Alanine Aminotransferase (ALT/SGPT) 47 0-55 U/L Alkaline Phosphatase 67 40-136 U/L Total Protein 8.1 6.4-8.2 GM/DL Albumin 4.8 H 3.2-4.5 GM/DL Urine Color YELLOW Urine Clarity CLEAR Urine pH 7.5 5-9 Urine Specific [place] 1.020 1.016-1.022 Urine Protein NEGATIVE NEGATIVE Urine Glucose (UA) 3+ H NEGATIVE Urine Ketones NEGATIVE NEGATIVE Urine Nitrite NEGATIVE NEGATIVE Urine Bilirubin NEGATIVE NEGATIVE Urine Urobilinogen 0.2 < = 1.0 MG/DL Urine Leukocyte Esterase NEGATIVE NEGATIVE Urine RBC (Auto) NEGATIVE NEGATIVE Urine RBC RARE /HPF Urine WBC NONE /HPF Urine Squamous Epithelial Cells RARE /HPF Urine Crystals NONE /LPF Urine Bacteria TRACE /HPF Urine Casts NONE /LPF Urine Mucus NEGATIVE /LPF Urine Culture Indicated NO My Orders Orders - LUCIANO WAGONER MD Lactated Ringers (Lr 1000 Ml Iv Solution (04/27/22 15:41) Ed Iv/Invasive Line Start (04/27/22 15:41) Vital Signs/I&O 04/27/22 15:35 Temp 36.6 Pulse 99 Resp 18 B/P (MAP) 145/93 (110) Pulse Ox 97 O2 Delivery Room Air Capillary Refill : Less Than 3 Seconds Blood Pressure Mean: 110 Progress Note : Progress Note Seen and evaluated. EKG, IV and labs ordered as well as UA. No distress currently. Monitor patient. 1708: Overall doing better. Labs reviewed and urine reviewed. I did discuss the case with [facility] Dr. Grijalva. We we will initiate antihypertensives due to fairly persistent blood pressures of 140s to 150s over 90s to 100 during ED visits over the last year or 2. Considered lisinopril but apparently there is some family issues with lisinopril and that several in the family have had problems with what sounds to be angioedema. We will go ahead and initiate amlodipine 5 mg p.o. daily and he will follow-up at the clinic for consideration for other antihypertensive. I told him that it is likely that this will be changed but this would be a reasonable small starting dose. He agrees. Discharged home with return precautions. Patient and family verbalized understanding of instructions and agreement with plan. ECG Initial ECG Impression Date: Apr 27, 2022 Initial ECG Impression Time: 15:39 Initial ECG Rate: 104 Initial ECG Rhythm: S.Tach Initial ECG Comparisson: No Previous ECG Available Comment Sinus tachycardia with normal axis. No evidence of ST elevation DE. Interpreted by me. Departure Impression Primary Impression: Hypertension Qualified Codes: I10 - Essential (primary) hypertension Additional Impressions: Type 2 diabetes mellitus Qualified Codes: E11.69 - Type 2 diabetes mellitus with other specified complication Mild dehydration Disposition: 01 HOME, SELF-CARE Condition: Improved Departure-Patient Inst. Decision time for Depature: 17:11 Referrals: [facility] (PCP/Family) Primary Care Physician Patient Instructions: Type 2 Diabetes, High Blood Pressure ED Add. Discharge Instructions: All discharge instructions reviewed with patient and/or family. Voiced u nderstanding. Take medications as directed. Continue to drink plenty of fluids. Carefully manage her blood sugar. Follow-up with the clinic for recheck and further evaluation. Call for appointment to discuss your blood pressure and continue diabetes management. Return for worse pain, fever, vomiting, weakness, breathing problems, dizziness or other concerns as needed. Monitor and record your blood pressures daily. Scripts Amlodipine Besylate (Amlodipine Besylate) 5 Mg Tablet 5 MG PO DAILY for 30 Days, #30 TAB 0 Refills Prov: LUCIANO WAGONER MD 04/27/22 LUCIANO WAGONER MD Apr 27, 2022 16:55
[2022-04-27] MEDS ORDERED: AMLO-250 PO (17:13)
== END 2022-04-27 17:42 | disposition home or self-care (01) ==
LOC: EDUNIT# 15:31 → ER 15:32
DX: I10 Essential (primary) hypertension (principal); E11.9 Type 2 diabetes mellitus without complications; E86.0 Dehydration; Z28.310 Unvaccinated for COVID-19
CPT/HCPCS: 36415; 80053; 81000; 85025; 93005

== ENCOUNTER 2022-08-06 14:43 | Emergency (ER) | payer SELFPAY ==
[~2022-08-06] VITALS: Ht 185 cm; Wt 121.0 kg
[~2022-08-06 14:43] MED LIST changes: +AMLO-250 PO
[2022-08-06] MEDS ORDERED: CYCL10TA25 PO (15:12)
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
[2022-08-06 15:49] VITALS: BP 135/100
== END 2022-08-06 15:26 | disposition home or self-care (01) ==
LOC: EDUNIT# 14:43 → ER 14:45
DX: S09.90XA Unspecified injury of head, initial encounter (principal); M54.2 Cervicalgia; Z28.310 Unvaccinated for COVID-19; V86.06XA Driver of dirt bike or motor/cross bike injured in traffic accident, initial encounter; Y92.410 Unspecified street and highway as the place of occurrence of the external cause
CPT/HCPCS: 99281